=== PATIENT | male | born 1955 | race Caucasian/White ===

== ENCOUNTER → 2019-10-08 10:56 | Outpatient (BNVA) | payer MEDICARE, MEDICAID, SELFPAY | PROVIDERS: PCP Nurse Practitioner Family; Visit Provider Nurse Practitioner | DX: M54.5 Low back pain (principal); M54.2 Cervicalgia; F17.210 Nicotine dependence, cigarettes, uncomplicated; Z79.891 Long term (current) use of opiate analgesic | CPT/HCPCS: 99213; 99214 ==

== ENCOUNTER → 2019-12-05 10:44 | Outpatient (BNVA) | payer MEDICARE, MEDICAID, SELFPAY | PROVIDERS: PCP Nurse Practitioner Family; Visit Provider Anesthesiology | DX: M47.816 Spondylosis without myelopathy or radiculopathy, lumbar region (principal); M50.30 Other cervical disc degeneration, unspecified cervical region; F17.210 Nicotine dependence, cigarettes, uncomplicated; Z79.899 Other long term (current) drug therapy; Z71.6 Tobacco abuse counseling | CPT/HCPCS: 99214 ==

== ENCOUNTER → 2020-02-03 10:06 | Outpatient (BNVA) | payer MEDICARE, MEDICAID, SELFPAY | PROVIDERS: PCP Nurse Practitioner Family; Visit Provider Nurse Practitioner | DX: M54.42 Lumbago with sciatica, left side (principal); M54.9 Dorsalgia, unspecified; M54.2 Cervicalgia; F17.210 Nicotine dependence, cigarettes, uncomplicated; Z79.891 Long term (current) use of opiate analgesic; Z71.6 Tobacco abuse counseling | CPT/HCPCS: 99213; 99214 ==

== ENCOUNTER 2020-03-29 07:55 | Outpatient (CLI) | payer MEDICARE, MEDICAID, SELFPAY ==
--- NOTE | 2020-03-29 08:24 | NMCV_ITS ---
NM renee perf SPECT r/s* [id number] Mo Wiggins Age: 64 Gender: M : 1955 Exam Date: 03/29/2020 08:24 Ordering Phys: Chris Wellington NP Technologist: KEVIN Knox Exam Location: [facility] Indications: CHEST PAIN, HYPERTENSION STRESS TEST Please see separate stress test report in [facility]any for full findings IMAGE PROTOCOL Rest/Stress 1 Lexiscan Day Radiopharmaceutical Dose (mCi) Administration Site Administered by Rest: Tc-99m 10.7 IV KEVIN Malloy Sestamibi Stress:Tc-99m 32.6 IV KEVIN Malloy Sestamibi Rest: 29-Mar-2020 60 Discovery 630 Stress: 29-Mar-2020 30 Discovery 630 0.4mg Lexiscan. Images obtained in supine and prone position. SPECT RESULTS Technical Quality: Excellent Raw Data Analysis: Normal Image Corrections: No attenuation or motion correction applied Summed Stress Score: 0 Summed Rest Score: 0 Summed Difference Score: 0 PERFUSION FINDINGS Very small size perfusion abnormality of mild severity of apical inferior wall on rest and supine stress images with improved tracer uptake on prone stress images. This is likely suggestive of attenuation artifact. FUNCTIONAL RESULTS (calculated via Gated SPECT) Stress Image LV EF (%): 63 Stress EDV (mL):110 TID: 1.08 Stress ESV (mL):41 FUNCTIONAL FINDINGS: The left ventricle is normal in size. Transient Ischemia Dilatation of 1.1. There is normal left ventricular systolic function. The left ventricular ejection fraction is normal with a value of 63%. There is normal left ventricular wall thickening. Normal end-diastolic and end-systolic volumes. IMPRESSIONS 1. Myocardial perfusion imaging is normal. Attenuation artifact noted in apical inferior wall. 2. Overall left ventricular systolic function is normal without regional wall motion abnormalities. 3. The left ventricular ejection fraction is normal with a value of 63%. 4. No coronary ischemia based on the study. Gela Mason MD (Electronically Signed) Final Date: 29 March 2020 16:47 S
--- NOTE | 2020-03-29 08:24 | ECG_ITS ---
[facility] Test Date: 2020-03-29 Pat Name: Mo Wiggins Department: Room: Gender: Male Fleece Tier: : 1955 Requested By: Chris Wellington Order Number: [id number] Oconnor MD: Stanislaw Craven M.D. Interpretive Statements NAME OF STUDY: LEXISCAN SESTAMIBI STRESS TEST INDICATION: Chest Pain NOTE: Please note that this is the electrocardiogram portion of the Lexiscan/Sestamibi stress test. The perfusion scan will be documented separately. DATA: Baseline heart rate was 61 beats per minute. Baseline blood pressure was 149/86 millimeters of mercury. Target heart rate was 157. Maximum heart rate achieved was 87. which was 55 % of the predicted target heart rate. Maximum blood pressure was 157/86 millimeters of mercury. The reason for ending the test was completion of the protocol. The patient did not experience any symptoms. ELECTROCARDIOGRAM: BASELINE: Sinus rhythm. Normal axis. Otherwise, no ST-T changes suggestive of ischemia noted. No arrhythmia noted. EXERCISE: After Lexiscan injection, no ST-T changes suggestive of ischemic noted. No arrhythmia noted. CONCLUSION: Please note due to baseline abnormality of the EKG specificity and sensitivity of the EKG portion of LexiScan MIBI stress test will be low 1. EKG not suggestive of ischemia 2. Lexiscan injection unremarkable. 3. Perfusion scan will be documented separately. Electronically Signed On 03-31-2020 20:15:31 CDT by Stanislaw Craven M.D. [id number]
[2020-03-29 08:26] VITALS: BMI 27.3
--- NOTE | 2020-03-29 09:46 | SUR.PREOP ---
Patient reports no pain or discomfort prior to the start of the procedure.
[2020-03-29] MEDS: regadenoson 0.4 Mg/5 ml Syringe IVP (09:47)
[2020-03-29 10:08] VITALS: BP 114/62; PULSE 74
== END 2020-03-29 07:56 | disposition home or self-care (01) ==
LOC: RAD 08:00 → CDL 08:25
PROVIDERS: PCP Nurse Practitioner Family; Visit Provider Nurse Practitioner Family
DX: R07.9 Chest pain, unspecified (principal); I10 Essential (primary) hypertension
CPT/HCPCS: 78452; 93017; A9500; J2785

== ENCOUNTER → 2020-03-31 09:53 | Outpatient (BNVA) | payer BC, MEDICAID, SELFPAY | PROVIDERS: PCP Nurse Practitioner Family; Visit Provider Anesthesiology | DX: M47.816 Spondylosis without myelopathy or radiculopathy, lumbar region (principal); M50.30 Other cervical disc degeneration, unspecified cervical region; M54.9 Dorsalgia, unspecified; F17.210 Nicotine dependence, cigarettes, uncomplicated; Z79.891 Long term (current) use of opiate analgesic; Z71.6 Tobacco abuse counseling | CPT/HCPCS: 99214 ==

== ENCOUNTER 2020-04-06 11:31 | Outpatient (CLI) | payer MEDICARE, MEDICAID, SELFPAY ==
--- NOTE | 2020-04-06 11:41 | XR_ITS ---
WS: [id number] PROCEDURE: XR chest 2V* [id number] CLINICAL INFORMATION: CHEST PAIN COMPARISON: None. FINDINGS: Heart: Normal cardiac silhouette. Lungs: Lungs are clear. No consolidation or pleural fluid. Bones: Normal visualized bony structures. XR/XR chest 2V* [id number] IMPRESSION: Normal chest
== END 2020-04-06 11:32 | disposition home or self-care (01) ==
LOC: RADWPI 11:38
PROVIDERS: Family Provider Nurse Practitioner Family; PCP Nurse Practitioner Family; Visit Provider Nurse Practitioner Family
DX: R07.9 Chest pain, unspecified (principal)
CPT/HCPCS: 71046

== ENCOUNTER → 2020-06-02 10:03 | Outpatient (BNVA) | payer MEDICARE, MEDICAID, SELFPAY | PROVIDERS: PCP Nurse Practitioner Family; Visit Provider Nurse Practitioner | DX: M54.42 Lumbago with sciatica, left side (principal); M47.816 Spondylosis without myelopathy or radiculopathy, lumbar region; M50.30 Other cervical disc degeneration, unspecified cervical region; M54.9 Dorsalgia, unspecified; F17.210 Nicotine dependence, cigarettes, uncomplicated; Z79.891 Long term (current) use of opiate analgesic; Z71.6 Tobacco abuse counseling | CPT/HCPCS: 99213; 99214 ==

== ENCOUNTER → 2020-07-01 09:22 | Outpatient (BNVA) | payer MEDICARE, MEDICAID, SELFPAY | PROVIDERS: PCP Nurse Practitioner Family; Visit Provider Anesthesiology | DX: M47.816 Spondylosis without myelopathy or radiculopathy, lumbar region (principal); M54.9 Dorsalgia, unspecified; M50.30 Other cervical disc degeneration, unspecified cervical region; F17.210 Nicotine dependence, cigarettes, uncomplicated; Z79.891 Long term (current) use of opiate analgesic; Z79.899 Other long term (current) drug therapy | CPT/HCPCS: 99214 ==

== ENCOUNTER → 2020-08-31 11:24 | Outpatient (BNVA) | payer MEDICARE, MEDICAID, SELFPAY | PROVIDERS: PCP Nurse Practitioner Family; Visit Provider Anesthesiology | DX: M54.42 Lumbago with sciatica, left side (principal); M54.9 Dorsalgia, unspecified; M47.816 Spondylosis without myelopathy or radiculopathy, lumbar region; M50.30 Other cervical disc degeneration, unspecified cervical region; F17.210 Nicotine dependence, cigarettes, uncomplicated; Z79.891 Long term (current) use of opiate analgesic; Z79.899 Other long term (current) drug therapy | CPT/HCPCS: 99213; 99214 ==

== ENCOUNTER → 2020-11-03 09:51 | Outpatient (BNVA) | payer MEDICARE, MEDICAID, SELFPAY | PROVIDERS: PCP Nurse Practitioner Family; Visit Provider Nurse Practitioner | DX: G89.29 Other chronic pain (principal); M47.816 Spondylosis without myelopathy or radiculopathy, lumbar region; M50.30 Other cervical disc degeneration, unspecified cervical region; M54.9 Dorsalgia, unspecified; F17.210 Nicotine dependence, cigarettes, uncomplicated; Z79.891 Long term (current) use of opiate analgesic; Z79.899 Other long term (current) drug therapy; Z71.6 Tobacco abuse counseling | CPT/HCPCS: 99213; 99214 ==

== ENCOUNTER → 2020-12-23 10:29 | Outpatient (BNVA) | payer MEDICARE, MEDICAID, SELFPAY | PROVIDERS: PCP Nurse Practitioner Family; Visit Provider Anesthesiology | DX: G89.29 Other chronic pain (principal); M54.9 Dorsalgia, unspecified; M47.816 Spondylosis without myelopathy or radiculopathy, lumbar region; M50.30 Other cervical disc degeneration, unspecified cervical region; F17.210 Nicotine dependence, cigarettes, uncomplicated; Z79.899 Other long term (current) drug therapy; Z79.891 Long term (current) use of opiate analgesic | CPT/HCPCS: 99214 ==

== ENCOUNTER 2021-01-31 12:41 | Emergency (ER) | payer MEDICARE, MEDICAID, SELFPAY ==
[2021-01-31 12:57] VITALS: BP 151/74; PULSE 76; RESP 16; TEMP 37.1; O2SAT 99; BMI 27.3
--- NOTE | 2021-01-31 13:12 | ECG_ITS ---
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 Measurements Intervals Hassell Rate: 67 P: 56 UT: 146 QRS: 45 QRSD: 97 T: 33 QT: 391 QTc: 414 Interpretive Statements SINUS RHYTHM POSSIBLE LEFT ATRIAL ENLARGEMENT [-0.1mV P WAVE IN V1/V2] No previous ECG available for comparison Electronically Signed On 02-01-2021 0:43:31 CDT by Chris Young M.D. [id number]
--- NOTE | 2021-01-31 13:12 | CT_ITS ---
WS: [id number] CT HEAD TECHNIQUE: Noncontrast CT of the head obtained from the skullbase to the vertex. CLINICAL INFORMATION: headache COMPARISON: MRI 10 ,019 DLP: 921.[address] scans at [facility] use at least one of these dose optimization techniques: automat ed exposure control; mA and/or kV adjustment per patient size (includes targeted exams where dose is matched to clinical indication); or iterative reconstruction. FINDINGS: No evidence of intracranial hemorrhage or mass effect. Ventricular system and basal cisterns are smith nt. Moderate to advanced small vessel changes with moderate parenchymal volume loss. No extra-axial f luid collections. No evidence of mass or mass effect. Chronic lacunar infarcts in the bilateral basal ganglia and left thalamus. Mastoid air cells are well aerated. Mild mucosal thickening in the paranasal sinuses. CT/CT head wo con* [id number] IMPRESSION: 1. No evidence of intracranial hemorrhage or mass effect. 2. Moderate to advanced small vessel changes with moderate parenchymal volume loss. 3. No acute intracranial findings.
--- NOTE | 2021-01-31 13:38 | ED_ITS ---
HPI - Headache General: Chief Complaint: Headache Stated Complaint: headaches, nausea Time Seen by Provider: 01/31/21 13:02 History of Present Illness: HPI Narrative: 65-year-old male comes in complaining of a left-sided frontal and temporal headache that started 1 week ago. Blood pressure has been up is little bit as well. He has had a lot of nausea with no vomiting. He is chronically on hydrocodone. He did not change the dose recently. He has not been taking any [id number]-[id number] medications he is not noticed any difficulty with vision or hearing swallowing taste or smell. He denies any chest pain or shortness of breath. MD elicited complaint: headache Pertinent past history: hypertension Onset (ago): week(s) (1) Onset description: suddenly Location: left, frontal and temporal Severity: moderate Quality & Timing: throbbing and steady Exacerbating factors: light and noise Relieving factors: rest and dark room Associated symptoms: Reports lightheadedness, nausea, photophobia and sound sensitivity; Deny chest pain, confusion, cough, diaphoresis, eye pain, eye redness, fever(s), loss of vision, malaise, neck stiffness, numbness, paresthesias, pre-syncope, rash, seizures, short of breath, syncope, vomiting or weakness Treatments prior to arrival: none Review of Systems Const: Denies: fever(s), malaise or diaphoresis ENMT: Denies: throat pain, ear or mastoid pain, nasal discharge or nasal congestion Card: Reports: lightheadedness; Denies: chest pain, syncope or pre-syncope Resp: Denies: dyspnea, productive cough or non-productive cough GI: Reports: nausea; Denies: vomiting : Denies: flank pain, dysuria, urinary frequency or urinary urgency Skin/Breast: Denies: rash Neuro: Denies: confusion PFSH ED PFSH: Medical History Back pain with radiation Degenerative disc disease, cervical Encounter for long-term opiate analgesic use Facet arthritis of lumbar region Long-term use of high-risk medication Opioid contract exists Smoker Surgical History History of colonoscopy with polypectomy 2016 S/P appendectomy S/P cataract extraction RIGHT EYE DR SARMIENTO Status post lens implant LEFT EYE Family History Other Heart disease Denies family history of Anesthesia complication Bleeding disorder Social History Smoking and tobacco status: current some day smoker cigarettes [ Other cigarette details: 1 EVERY 4 DAYS ] Alcohol intake: former Former alcohol use details: Quit 10 years ago History of recent travel: No Physical Exam Const: COMMON NORMALS: no acute distress GENERAL APPEARANCE: cooperative and comfortable ORIENTATION/CONSCIOUSNESS: Yes awake, Yes oriented to person, Yes oriented to place and Yes oriented to time HENMT: COMMON NORMALS: normocephalic, atraumatic, hearing grossly normal bilaterally, external ears normal, EAC's normal, TM's normal bilaterally, Normal nasal mucous membranes and turbinates present, moist oral mucous membranes and oropharynx normal HEAD & SCALP: normocephalic and atraumatic NOSE: Normal nasal mucous membranes and turbinates present EXTERNAL EAR: Yes external ears normal EXTERNAL AUDITORY CANAL: EAC's normal TYMPANIC MEMBRANE: TM's normal bilaterally Eye: COMMON NORMALS: Equal, round and reactive pupils present, EOMs intact bilaterally, conjunctivae normal and no scleral icterus CONJUNCTIVA: Yes conjunctivae normal PUPIL: Yes Equal, round and reactive pupils present DIRECT OPHTHALMOSCOPY: Yes photophobia Neck/C-Spine: COMMON NORMALS: full ROM, no lymphadenopathy, supple and no JVD Lymph: LYMPHATIC: no lymphadenopathy noted and no lymphedema noted Resp: COMMON NORMALS: normal respiratory effort, No retractions, No use of accessory muscles and clear to auscultation bilaterally AUSCULTATION: clear to auscultation bilaterally Cardio: COMMON NORMALS: no JVD, regular rate, regular rhythm and No murmurs present (Cardio) RATE: regular rate RHYTHM: regular rhythm GI: COMMON NORMALS: Soft to palpation and No hepatosplenomegaly present AUSCULTATION: Yes normoactive bowel sounds PALPATION: Yes Soft to palpation, No Tenderness to palpation present (GI), No Guarding due to palpation present (GI) and Yes No hepatosplenomegaly present Extremity: COMMON NORMALS: normal to inspection, capillary refill normal, no clubbing, cyanosis or edema, no calf tenderness and no pedal edema Neuro: SENSORIUM/ORIENTATION: Yes oriented to person, Yes oriented to place and Yes oriented to time Skin: COMMON NORMALS: no rashes or lesions noted GENERAL SKIN EXAM: no rashes or lesions noted Course Vital Signs: Vital signs: Vital Signs Temperature 98.7 F 01/31/21 12:57 Pulse Rate 65 01/31/21 15:31 Respiratory Rate 18 01/31/21 15:31 Blood Pressure 122/66 01/31/21 15:31 Pulse Oximetry 96 01/31/21 15:31 MDM - Headache MDM Narrative: Medical decision making narrative: Headache improved with interventions. His sodium is a little bit low. We will go ahead and discharge him home given Phenergan to use as needed for his headaches encouraged him to check with his primary care doctor later this week to recheck sodium additionally we will increase his metoprolol to 50 daily he will need to have his blood pressure rechecked on follow-up as well return if has problems. Lab Data: Labs: Lab Results 01/31/21 01/31/21 Range/Units 13:35 13:35 WBC 11.7 H (4.0-10.0) 10^3/ uL RBC 4.80 (4.1-5.3) 10^6/u L Hgb 14.8 (11.7-16.6) g/dL Hct 43.2 (42.0-52.0) % MCV 90.0 (80-94) fL MCH 30.8 (28.0-34.0) pg MCHC 34.3 (30.0-36.0) g/dL RDW 12.4 (12.1-15.1) % Plt Count 356 (130-400) 10^3/c mm MPV 8.8 (7.4-10.4) fL Neut % (Auto) 70.8 % Lymph % (Auto) 19.6 % [place] % (Auto) 7.5 % Eos % (Auto) 0.9 % Baso % (Auto) 0.6 % Neut # (Auto) 8.28 H (1.8-7.7) 10^3/u L Lymph # (Auto) 2.3 (0.8-4.8) 10^3/u L [place] # (Auto) 0.9 (0.2-0.9) 10^3/u L Eos # (Auto) 0.1 (0.0-0.8) 10^3/u L Baso # (Auto) 0.1 (0.0-0.1) 10^3/u L Nucleated RBC % (a uto) 0 % Nucleated RBCs # 0.0 /100WBC Sodium 126 L (136-145) mmol/L Potassium 4.0 (3.5-5.1) mmol/L Chloride 91 L (98-107) mmol/L Carbon Dioxide 26 (22-29) mmol/L Anion Gap 13.0 (5-19) BUN 13 (8-23) mg/dL Creatinine 0.9 (0.7-1.2) mg/dL GFR Calculation 85.0 L (90-130) mL/min Glucose 95 (65-115) mg/dL Calculated Osmolal ity 262 L (285-295) mOsm/k g Calcium 8.9 (8.5-10.5) mg/dL Total Bilirubin 0.5 (0.15-1.2) mg/dL AST 13 (0-40) U/L ALT 14 (0-41) U/L Alkaline Phosphata se 73 (40-130) IU/L Total Protein 7.5 (6.6-8.7) g/dL Albumin 4.6 (3.5-5.2) g/dL Globulin 2.9 (1.3-4.6) g/dL Discharge Plan Discharge Patient Disposition: Home Clinical Impression: Headache, Benign essential HTN Condition: Stable Prescriptions: New promethazine 25 mg tablet 25 mg PO Q6H PRN (Reason: prn headache) Qty: 20 RF: 0 Changed metoprolol succinate 25 mg tablet extended release 24 hr 50 mg PO DAILY@629 Qty: 0 RF: 0 No Action meloxicam [Mobic] 15 mg tablet 15 mg PO DAILY@1829 RF: 0 amlodipine 5 mg tablet 10 mg PO DAILY@1829 RF: 0 bupropion HCl 150 mg tablet extended release 24 hr 150 mg PO DAILY@30 RF: 0 hydrocodone-acetaminophen 10-325 mg tablet 1 tab PO QID 30 Days Qty: 120 RF: 0 baclofen 10 mg tablet 10 mg PO TID PRN (Reason: muscle spacticity) 30 Days Qty: 90 RF: 1 pravastatin 40 mg tablet 1 mg PO DAILY@1829 RF: 0 benazepril-hydrochlorothiazide 20-12.5 mg tablet 1 tab PO DAILY@0630 RF: 0 pantoprazole 40 mg tablet,delayed release (DR/EC) 40 mg PO DAILY@1830 RF: 0 gabapentin 300 mg capsule 600 mg PO BEDTIME@2100 RF: 0 Discharge Orders: Discharge ED (Routine); Ordered 01/31/21 Ordered By: Albert Bryant Referrals: Chris Wellington NP [Primary Care Provider] - Discharge Diet: Usual diet Discharge Activity: Resume usual activity Patient Instructions: Opioid Safety Activity Restrictions/Additional Instructions: Increase metoprolol to 50 mg daily. Follow-up with your primary care doctor within the week to reevaluate blood pressure and headache. Coding Level of Care Code ED Doctor Chiropractic for Chg Fwd Exam Problem Focused
[2021-01-31 13:42] LABS: Basophils # 0.1 10^3/uL (0.0-0.1); Basophils % 0.6 %; Eosinophils # 0.1 10^3/uL (0.0-0.8); Eosinophils % 0.9 %; Hematocrit 43.2 % (42.0-52.0); Hemoglobin 14.8 g/dL (11.7-16.6); Lymphocytes # 2.3 10^3/uL (0.8-4.8); Lymphocytes % 19.6 %; Mean Corpuscular HGB Conc 34.3 g/dL (30.0-36.0); Mean Corpuscular Hemoglobin 30.8 pg (28.0-34.0); Mean Platelet Volume 8.8 fL (7.4-10.4); Monocytes # 0.9 10^3/uL (0.2-0.9); Monocytes % 7.5 %; Neutrophils # 8.28 10^3/uL (1.8-7.7); Neutrophils % 70.8 %; Nucleated Red Blood Cells % 0 %; Platelet Count 356 10^3/cmm (130-400); Red Cell Distribution Width 12.4 % (12.1-15.1); White Blood Count 11.7 10^3/uL (4.0-10.0)
[2021-01-31] MEDS: ketorolac 30 mg/mL INJ 15 MG IVP (13:55)
[2021-01-31] MEDS: promethazine 25 mg/mL SDV 1 mL IM (13:55)
[2021-01-31 14:16] LABS: Alanine Aminotransferase 14 U/L (0-41); Albumin Level 4.6 g/dL (3.5-5.2); Alkaline Phosphatase 73 IU/L (40-130); Aspartate Amino Transferase 13 U/L (0-40); Blood Urea Nitrogen 13 mg/dL (8-23); Calcium 8.9 mg/dL (8.5-10.5); Carbon Dioxide 26 mmol/L (22-29); Chloride 91 mmol/L (98-107); Globulin 2.9 g/dL (1.3-4.6); Glucose 95 mg/dL (65-115); Osmolality Calculated 262 mOsm/kg (285-295); Sodium 126 mmol/L (136-145); Total Bilirubin 0.5 mg/dL (0.15-1.2); Total Protein 7.5 g/dL (6.6-8.7)
[2021-01-31 15:31] VITALS: BP 122/66; PULSE 65; RESP 18; O2SAT 96
== END 2021-01-31 15:32 | disposition home or self-care (01) ==
PROVIDERS: Emergency Provider Family Medicine; PCP Nurse Practitioner Family
DX: R51.9 Headache, unspecified (principal); I10 Essential (primary) hypertension; F17.210 Nicotine dependence, cigarettes, uncomplicated
CPT/HCPCS: 70450; 80053; 85025; 93005; 96372; 96374; 99283; J1885; J2550

== ENCOUNTER → 2021-02-25 10:19 | Outpatient (BNVA) | payer MEDICARE, MEDICAID, SELFPAY | PROVIDERS: PCP Nurse Practitioner Family; Visit Provider Anesthesiology | DX: G89.29 Other chronic pain (principal); M54.9 Dorsalgia, unspecified; M47.816 Spondylosis without myelopathy or radiculopathy, lumbar region; M54.2 Cervicalgia; F17.210 Nicotine dependence, cigarettes, uncomplicated; Z79.899 Other long term (current) drug therapy; Z79.891 Long term (current) use of opiate analgesic | CPT/HCPCS: 99213; 99214 ==

== ENCOUNTER → 2021-04-29 10:29 | Outpatient (BNVA) | payer MEDICARE, MEDICAID, SELFPAY | PROVIDERS: PCP Nurse Practitioner Family; Visit Provider Anesthesiology | DX: G89.29 Other chronic pain (principal); M47.816 Spondylosis without myelopathy or radiculopathy, lumbar region; M54.2 Cervicalgia; M40.50 Lordosis, unspecified, site unspecified; F17.210 Nicotine dependence, cigarettes, uncomplicated; Z79.891 Long term (current) use of opiate analgesic | CPT/HCPCS: 99213; 99214 ==

== ENCOUNTER → 2021-06-23 08:15 | Outpatient (BNVA) | payer MEDICARE, MEDICAID, SELFPAY | PROVIDERS: PCP Nurse Practitioner Family; Visit Provider Anesthesiology | DX: M47.816 Spondylosis without myelopathy or radiculopathy, lumbar region (principal); M50.30 Other cervical disc degeneration, unspecified cervical region; F17.210 Nicotine dependence, cigarettes, uncomplicated; Z79.899 Other long term (current) drug therapy; Z79.891 Long term (current) use of opiate analgesic | CPT/HCPCS: 99214 ==

== ENCOUNTER → 2021-09-20 08:19 | Outpatient (BNVA) | payer MEDICARE, MEDICAID, SELFPAY | PROVIDERS: PCP Nurse Practitioner Family; Visit Provider Anesthesiology | DX: G89.29 Other chronic pain (principal); M47.816 Spondylosis without myelopathy or radiculopathy, lumbar region; M50.30 Other cervical disc degeneration, unspecified cervical region; F17.200 Nicotine dependence, unspecified, uncomplicated; Z79.891 Long term (current) use of opiate analgesic; Z79.899 Other long term (current) drug therapy | CPT/HCPCS: 99214 ==

== ENCOUNTER → 2022-01-18 14:33 | Outpatient (BNVA) | payer MEDICARE, MEDICAID, SELFPAY | PROVIDERS: PCP Nurse Practitioner Family; Referring Provider Nurse Practitioner Family; Visit Provider Surgery | DX: Z86.010 Personal history of colon polyps (principal) | CPT/HCPCS: 99213 ==

== ENCOUNTER 2022-03-23 05:42 | Day surgery (SDC) | payer MEDICARE, MEDICAID, SELFPAY ==
[2022-03-22 10:35] VITALS: BMI 27.3
[2022-03-23 06:10] VITALS: BP 146/93; PULSE 87; RESP 18; TEMP 36.7; O2SAT 98
[2022-03-23] MEDS: sodium chloride 0.9% 1,000 ML 30 ML IV (06:12)
--- NOTE | 2022-03-23 06:44 | W.PM.OPSFHP ---
Same Day Surgery H&P Indication for Procedure/HPI DATE OF PROCEDURE: March 23, 2022 CHIEF COMPLAINT/INDICATIONFOR SURGICAL PROCEDURE: Colon polyp PREOP DIAGNOSIS: History of colon polyps PLANNED PROCEDURE: Operation Date: 03/23/22 07:30 Proposed Procedures p Colonoscopy 12792/z86.010(Not Applicable) - Petros Johnson MD 01/18/2022 This is a pleasant 66 years old gentleman was seen and evaluated back in 12/22/2020 for surveillance colonoscopy because of history of colon polyps.? Yet its not clear why the patient did not have it done.? Patient comes today for follow-up to schedule his surveillance colonoscopy.? He denies bleeding per rectum or history of colon cancer. 03/23/2022 Patient comes today for surveillance colonoscopy ROS All systems have been reviewed negative except as for the above or per problem list. Medications/Allergies* Home Medications Medication Instructions Recorded Confirmed Type amlodipine 5 mg tablet 10 mg PO DAILY@182910/07/19 03/23/22 History meloxicam 15 mg tablet (Mobic) 15 mg PO DAILY@182910/07/19 03/23/22 History benazepril 20 1 tab PO DAILY@62901/31/21 03/23/22 History mg-hydrochlorothiazide 12.5 mg tablet pantoprazole 40 mg tablet,delayed 40 mg PO DAILY@182901/31/21 03/23/22 History release pravastatin 40 mg tablet 1 mg PO DAILY@182901/31/21 03/23/22 History Allergies/Adverse Reactions Allergy/AdvReac Type Severity Reaction Status Date / Time No Known Allergies Allergy Verified 03/23/22 06:45 Current Medications: Generic Name Dose Route Start Last Admin Trade Name Freq PRN Reason Stop Dose Admin Sodium Chloride 1,000 mls @ 30 mls/hr 03/23/22 06:00 03/23/22 06:12 Sodium Chloride 0.9% IV 03/24/22 05:59 30 mls/hr .Q24H CARL Administration Pertinent History/Comorbid Conditions* Medical History Back pain with radiation Degenerative disc disease, cervical Encounter for long-term opiate analgesic use Facet arthritis of lumbar region Long-term use of high-risk medication Opioid contract exists Smoker Surgical History (Updated 12/23/20 @ 18:10 by Petros Johnson MD) History of colonoscopy with polypectomy 2016 S/P appendectomy S/P cataract extraction RIGHT EYE DR SARMIENTO Status post lens implant LEFT EYE Family History (Updated 10/07/19 @ 17:01 by HANNAH Mae) Heart disease Denies family history of Anesthesia complication Bleeding disorder Social History Smoking and tobacco status: current every day smoker cigarettes [ Other cigarette details: 1 EVERY 4 DAYS] Alcohol intake: former Former alcohol use details: Quit 10 years ago History of recent travel: No Pertinent Exam Findings alert, oriented x 3, regular rate & rhythm and procedure specific exam findings (Abdominal exam nontender nondistended soft) Recommendations Surgery/Procedure today (Surveillance colonoscopy) Coding Level of Care Code Acute [place] Neck Whipper for Markus Tobar
--- NOTE | 2022-03-23 06:54 | ANES.PREANE2 ---
Pre-Anesthetic Assessment Height/Weight: Height 1.73 m Weight 81.647 kg Temp Pulse Resp BP Pulse Ox 98.0 F 87 18 146/93 98 03/23/22 06:10 03/23/22 06:10 03/23/22 06:10 03/23/22 06:10 03/23/22 06:10 Preop Diagnosis: History of colon polyps Operation Date: 03/23/22 07:30 Proposed Procedures p Colonoscopy 03270/z86.010(Not Applicable) - Petros Johnson MD Familial anesthetic complications: none Was Beta Claire taken within 24 hours: Yes Was Clonidine taken within 24 hours: N/A Last intake: Intake Last Liquid Date 03/22/22 Last Liquid Time 21:30 Last Solid Date 03/22/22 Last Solid Time 10:30 Social Tobacco and No alcohol 0.5 pack(s) per day Exam alert, oriented x 3, clear to auscultation bilaterally and regular rate & rhythm Airway Submandibular: within normal limits Cervical ROM: within normal limits Mallampati: Class II Dentition: full Pulmonary None reported CV/HEM Hypertension None reported Hepatic None reported GI Gastroesophageal Reflux Disease (controlled) Metabolic Hyperlipidemia [facility] None reported Neuropsych None reported Anesthetic Plan ASA status: 2 Anesthesia: MAC Risk of > 500 ml blood loss (7ml/kg in children): No Medications/Allergies Home Medications Medication Instructions Recorded Confirmed Last Taken Type amlodipine 5 mg tablet 10 mg PO DAILY@182910/07/19 03/23/22 03/22/22 History meloxicam 15 mg tablet (Mobic) 15 mg PO DAILY@182910/07/19 03/23/22 03/22/22 History benazepril 20 1 tab PO DAILY@62901/31/21 03/23/22 03/22/22 History mg-hydrochlorothiazide 12.5 mg tablet metoprolol succinate 25 mg 50 mg PO DAILY@629 #0 tab 01/31/21 03/23/22 03/21/22 Rx tablet,extended release 24 hr pantoprazole 40 mg tablet,delayed 40 mg PO DAILY@182901/31/21 03/23/22 03/21/22 History release pravastatin 40 mg tablet 1 mg PO DAILY@182901/31/21 03/23/22 03/21/22 History promethazine 25 mg tablet 25 mg PO Q6H PRN #20 tab 01/31/21 03/23/22 03/21/22 Rx baclofen 10 mg tablet 10 mg PO TID PRN 30 Days #90 tab 09/20/21 03/23/22 03/22/22 Rx gabapentin 300 mg capsule 600 mg PO BEDTIME@2100 30 Days #60 09/20/21 03/23/22 03/22/22 Rx cap hydrocodone 10 mg-acetaminophen 1 tab PO QID 30 Days #120 tab 09/20/21 03/23/22 03/22/22 Rx 325 mg tablet Allergies Allergy/AdvReac Type Severity Reaction Status Date / Time No Known Allergies Allergy Verified 03/23/22 06:45 Current Medications Generic Name Dose Route Start Last Admin Trade Name Justiceq PRN Reason Stop Dose Admin Sodium Chloride 1,000 mls @ 30 mls/hr 03/23/22 06:00 03/23/22 06:12 Sodium Chloride 0.9% IV 03/24/22 05:59 30 mls/hr .Q24H CARL Administration PFSH Anesthesia Medical History Back pain with radiation Degenerative disc disease, cervical Encounter for long-term opiate analgesic use Facet arthritis of lumbar region Long-term use of high-risk medication Opioid contract exists Smoker Surgical History History of colonoscopy with polypectomy 2016 S/P appendectomy S/P cataract extraction RIGHT EYE DR SARMIENTO Status post lens implant LEFT EYE Family History Other Heart disease Denies family history of Anesthesia complication Bleeding disorder Social History Smoking and tobacco status: current every day smoker cigarettes [ Other cigarette details: 1 EVERY 4 DAYS] Alcohol intake: former Former alcohol use details: Quit 10 years ago History of recent travel: No Data Anesthesia Cardiac Studies: Sestamibi Stress Test (Cardiology) 03/29/20
[2022-03-23 07:58] VITALS: BP 113/69; PULSE 65; RESP 12; TEMP 36.3; O2SAT 94
--- NOTE | 2022-03-23 08:06 | ANE.PACU2 ---
Inpatient post-anesthesia follow up: Airway intact: Yes Vital signs: Temperature 98.0 F Pulse Rate 87 Respiratory Rate 18 Blood Pressure 146/93 Pulse Oximetry 98 Oxygen Delivery Me thod Room Air Oxygen Flow Rate Fraction of Inspir ed Oxygen Hydration adequate: Yes Nausea and vomiting: No Pain level: 1 Mental status: Baseline
[2022-03-23 08:22] VITALS: BP 147/81; PULSE 62; RESP 18; TEMP 36.1; O2SAT 95
[2022-03-23 08:23] LABS: Basophils # 0.1 10^3/uL (0.0-0.1); Basophils % 0.4 %; Eosinophils # 0.1 10^3/uL (0.0-0.8); Eosinophils % 0.6 %; Hematocrit 42.8 % (42.0-52.0); Hemoglobin 14.8 g/dL (11.7-16.6); Lymphocytes # 1.3 10^3/uL (0.8-4.8); Lymphocytes % 11.9 %; Mean Corpuscular HGB Conc 34.6 g/dL (30.0-36.0); Mean Corpuscular Hemoglobin 31.2 pg (28.0-34.0); Mean Corpuscular Volume 90.3 fl (80-94); Mean Platelet Volume 9.1 fL (7.4-10.4); Monocytes # 0.6 10^3/uL (0.2-0.9); Neutrophils # 9.09 10^3/uL (1.8-7.7); Neutrophils % 81.7 %; Nucleated Red Blood Cells % 0 %; Platelet Count 355 10^3/cmm (130-400); Red Blood Count 4.74 10^6/uL (4.1-5.3); Red Cell Distribution Width 12.7 % (12.1-15.1); White Blood Count 11.1 10^3/uL (4.0-10.0)
[2022-03-23 08:50] LABS: Carcinoembryonic Antigen 1.8 ng/mL (0.0-4.7)
[2022-03-23 09:01] LABS: Alanine Aminotransferase 15 U/L (0-41); Albumin Level 4.2 g/dL (3.5-5.2); Alkaline Phosphatase 62 IU/L (40-130); Anion Gap 15.7 (5-19); Aspartate Amino Transferase 16 U/L (0-40); Blood Urea Nitrogen 12 mg/dL (8-23); Calcium 8.8 mg/dL (8.5-10.5); Carbon Dioxide 24 mmol/L (22-29); Chloride 101 mmol/L (98-107); Globulin 2.9 g/dL (1.3-4.6); Glomerular Filtration Rate 67.2 mL/min (90-130); Glucose 102 mg/dL (65-115); Osmolality Calculated 284 mOsm/kg (285-295); Potassium 3.7 mmol/L (3.5-5.1); Sodium 137 mmol/L (136-145); Total Bilirubin 0.5 mg/dL (0.15-1.2); Total Protein 7.1 g/dL (6.6-8.7)
== END 2022-03-23 08:40 | disposition home or self-care (01) ==
PROVIDERS: PCP Nurse Practitioner Family; Visit Provider Surgery
PROC: 0DJD8ZZ Inspection of Lower Intestinal Tract, Via Natural or Artificial Opening Endoscopic (ICD-10-PCS; CPT 45378; principal; 2022-03-23 07:30)
DX: Z12.11 Encounter for screening for malignant neoplasm of colon (principal); K57.30 Diverticulosis of large intestine without perforation or abscess without bleeding; Z86.010 Personal history of colon polyps; Z79.899 Other long term (current) drug therapy; Z79.891 Long term (current) use of opiate analgesic; F17.210 Nicotine dependence, cigarettes, uncomplicated; I10 Essential (primary) hypertension; K21.9 Gastro-esophageal reflux disease without esophagitis; E78.5 Hyperlipidemia, unspecified
CPT/HCPCS: 45380; 45381; 80053; 82378; 85025; 88305; J2704; J7030

== ENCOUNTER → 2022-03-30 14:29 | Outpatient (BNVA) | payer MEDICARE, MEDICAID, SELFPAY | PROVIDERS: PCP Nurse Practitioner Family; Visit Provider Surgery | DX: Z09 Encounter for follow-up examination after completed treatment for conditions other than malignant neoplasm (principal); K57.31 Diverticulosis of large intestine without perforation or abscess with bleeding; Z86.010 Personal history of colon polyps | CPT/HCPCS: 99213 ==

== ENCOUNTER → 2022-07-20 09:35 | Outpatient (BNVA) | payer MEDICARE, MEDICAID, SELFPAY | PROVIDERS: PCP Nurse Practitioner Family; Visit Provider Nurse Practitioner Family | DX: I10 Essential (primary) hypertension (principal); Z79.899 Other long term (current) drug therapy | CPT/HCPCS: 80053; 80061; 81000; 85025 ==

== ENCOUNTER → 2022-09-05 09:31 | Outpatient (BNVA) | payer MEDICARE, MEDICAID, SELFPAY | PROVIDERS: PCP Nurse Practitioner Family; Visit Provider Internal Medicine Cardiovascular Disease | DX: R07.89 Other chest pain (principal); I10 Essential (primary) hypertension; F17.210 Nicotine dependence, cigarettes, uncomplicated | CPT/HCPCS: 99204 ==

== ENCOUNTER 2022-10-24 06:27 | Outpatient (CLI) | payer MEDICARE, MEDICAID, SELFPAY ==
[2022-10-24 06:53] VITALS: BMI 25.1
--- NOTE | 2022-10-24 06:53 | ECG_ITS ---
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 Interpretive Statements NAME OF STUDY: LEXISCAN SESTAMIBI STRESS TEST INDICATION: Chest Pain, PROCEDURE: At the baseline, the EKG revealed normal sinus rhythm with a normal ST Ts.. The baseline heart was 80 bpm with a blood pressue of 176/79 mm of Hg Lexiscan was infused over a period of 20 seconds. A total of 0.4 milligrams of Lexiscan was infused. The stress phase was continued for a total of 5 minutes. Heart rate at the end of the stress phase was 96 bpm with a blood pressure 161/70 mm of Hg. The EKG at the peak infusion revealed no significant changes. Sestamibi was injected 20 seconds after the Lexiscan infusion. Heart rate at the end of the recovery phase was 91 bpm with a blood pressure of 166/73 mm of Hg. CONCLUSION: 1. No significant EKG changes with the LexiScan infusion 2. No LexiScan induced chest pain or cardiac arrhythmia 3. Normal blood pressure and heart rate response 4. Sestamibi/sestamibi perfusion scan pending; see separate report. Electronically Signed On 10-28-2022 13:41:22 STEAM DISTRIBUTION SUPERVISOR by Chris Young M.D. [email or web address]
--- NOTE | 2022-10-24 06:53 | NMCV_ITS ---
NM renee perf SPECT r/s* [id number] Mo Wiggins Age: 67 Gender: M : 1955 Exam Date: 10/24/2022 06:53 Ordering Phys: Gela Mason MD ([email or web address]) Technologist: KEVIN Knox Exam Location: [facility] Indications: CHEST PAIN STRESS TEST Please see separate stress test report in [facility] for full findings IMAGE PROTOCOL Rest/Stress 1 Lexiscan Day Radiopharmaceutical Dose (mCi) Administration Site Administered by Rest: Tc-99m 10.8 IV KEVIN Malloy Sestamibi Stress:Tc-99m 32.6 IV KEVIN Malloy Sestamibi Rest: 24-Oct-2022 60 Discovery 630 Stress: 24-Oct-2022 30 Discovery 630 0.4mg Lexiscan. Images obtained in supine and prone position. SPECT RESULTS Technical Quality: Excellent Raw Data Analysis: Normal Image Corrections: No attenuation or motion correction applied Summed Stress Score: 0 Summed Rest Score: 0 Summed Difference Score: 0 PERFUSION FINDINGS SPECT images demonstrate homogeneous tracer distribution throughout the myocardium. FUNCTIONAL RESULTS (calculated via Gated SPECT) Stress Image LV EF (%): 85 Stress EDV (mL):86 TID: 0.96 Stress ESV (mL):13 FUNCTIONAL FINDINGS: The left ventricle is normal in size. Transient Ischemia Dilatation of 0.96. The left ventricular ejection fraction is normal with a value of 85%. There is hyperdynamic left ventricular wall thickening. IMPRESSIONS 1. Myocardial perfusion imaging is normal. 2. Overall left ventricular systolic function is hyperdynamic without regional wall motion abnormalities, LVEF=85%. 3. EKG portion of the study will be reported separately. 4. Scan indicates low risk for cardiac events. Gela Mason MD (Electronically Signed) Final Date: 31 October 2022 19:57 S
[2022-10-24 08:52] VITALS: BP 146/72; PULSE 91
== END 2022-10-24 06:28 | disposition home or self-care (01) ==
PROVIDERS: PCP Nurse Practitioner Family; Visit Provider Internal Medicine Cardiovascular Disease
DX: R07.9 Chest pain, unspecified (principal)
CPT/HCPCS: 36415; 78452; 93017; 96374; A9500

== ENCOUNTER 2022-11-21 07:49 | Emergency (ER) | payer MEDICARE, MEDICAID, SELFPAY ==
--- NOTE | 2022-11-21 07:51 | XRR_ITS ---
PROCEDURE INFORMATION: Exam: XR Chest Exam date and time: 11/21/2022 8:06 AM Age: 67 years old Clinical indication: Pain; Left-sided; Additional info: Chest pain TECHNIQUE: Imaging protocol: Radiologic exam of the chest. Views: 1 view. COMPARISON: CR XR chest 2V* [id number] 04/06/2020 12:02 PM FINDINGS: Lungs: Unremarkable. No consolidation. Pleural spaces: Unremarkable. No pleural effusion. No pneumothorax. Heart/Mediastinum: Unremarkable. No cardiomegaly. Bones/joints: Unremarkable for age. XR/XR chest 1V portable [id number] IMPRESSION: Negative chest
--- NOTE | 2022-11-21 07:52 | ECG_ITS ---
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 Measurements Intervals Adkins Rate: 68 P: 65 OK: 149 QRS: 48 QRSD: 102 T: 47 QT: 379 QTc: 405 Interpretive Statements SINUS RHYTHM Compared to ECG 01/31/2021 13:45:24 No significant changes Electronically Signed On 11-21-2022 18:16:35 [facility] by Cirilo Fields M.D. [id number]
[2022-11-21 07:58] VITALS: BP 208/109; PULSE 73; RESP 16; TEMP 36.6; O2SAT 94
--- NOTE | 2022-11-21 08:01 | ED_ITS ---
HPI - Chest Pain General: Chief Complaint: Chest Pain Stated Complaint: headache, chest pain Time Seen by Provider: 11/21/22 07:50 Source: patient Mode of arrival: ambulatory History of Present Illness: 67-year-old male presents emergency room with complaints of chest pain. He is intermittently had chest pain for the last 4 months. He seen primary care for a couple of times she has had a cardiac stress test which was negative as a Lexiscan sestamibi stress test. He does have elevated blood pressure he is on carvedilol, amlodipine and Benzepril hydrochlorothiazide. He is also been taking Protonix for reflux. He has not noticed anything that exacerbates or relieves the chest pain. He has not missed any of his medications recently. He is on tramadol that he takes as needed. He has not noticed any association of the chest pain with exertion or palpation his chest has not had any radiation of pain shortness of breath diaphoresis or nausea. MD complaint: chest pain Onset (ago): month(s) Timing of current episode: episodic Prior episodes: Yes Onset: during rest Pain location: left chest Pain radiation: none Severity: mild Quality: tightness and heaviness Relieving factors: nothing Exacerbating factors: nothing Associated symptoms: Deny abdominal pain, diaphoresis, dyspnea, fever(s), leg edema, nausea, palpitations, sense of impending doom, syncope or vomiting Treatment prior to arrival: none Review of Systems Const: Denies: fever(s), chills, fatigue, malaise or diaphoresis ENMT: Denies: throat pain, ear or mastoid pain, nasal discharge or nasal congestion Card: Reports: chest pain; Denies: palpitations, irregular heart rhythm, edema, swelling of feet/ankles or syncope Resp: Denies: dyspnea, productive cough, non-productive cough or wheezing GI: Denies: abdominal pain, nausea or vomiting : Denies: flank pain, dysuria, urinary frequency or urinary urgency Skin/Breast: Denies: rash or pruritus PFSH ED PFSH: Medical History Back pain with radiation Degenerative disc disease, cervical Encounter for long-term opiate analgesic use Facet arthritis of lumbar region GERD (gastroesophageal reflux disease) Long-term use of high-risk medication Opioid contract exists Smoker Surgical History History of colonoscopy with polypectomy 2016 S/P appendectomy S/P cataract extraction RIGHT EYE DR SARMIENTO Status post lens implant LEFT EYE Family History Mother Myocardial infarction Hypertension Sister Myocardial infarction Hypertension Family/Other Stroke Father Hypertension Brother Hypertension Diabetes Other Heart disease Social History Smoking and tobacco status: current every day smoker cigarettes Packs smoked per day: 0.5 Years cigarettes smoked: 40 [ Other cigarette details: slowed down] Alcohol intake: former Former alcohol use details: Quit 10 years ago Adopted: No Caregiver/support person: No Lives independently: Yes service: No Current occupational status: disabled Sexually active: Yes Current gender identity: Male Physical Exam Const: GENERAL APPEARANCE: cooperative and comfortable ORIENTATION/CONSCI OUSNESS: Yes awake, Yes oriented to person, Yes oriented to place and Yes oriented to time HENMT: COMMON NORMALS: normocephalic, atraumatic and hearing grossly normal bilaterally HEAD & SCALP: normocephalic and atraumatic Resp: COMMON NORMALS: normal respiratory effort, No retractions, No use of accessory muscles and clear to auscultation bilaterally AUSCULTATION: clear to auscultation bilaterally Cardio: COMMON NORMALS: regular rate, regular rhythm and No murmurs present (Cardio) RATE: regular rate RHYTHM: regular rhythm GI: COMMON NORMALS: Soft to palpation and No hepatosplenomegaly present AUSCULTATION: Yes normoactive bowel sounds PALPATION: Yes Soft to palpation, No Tenderness to palpation present (GI), No Guarding due to palpation present (GI) and Yes No hepatosplenomegaly present Extremity: COMMON NORMALS: normal to inspection, capillary refill normal, no clubbing, cyanosis or edema, no calf tenderness and no pedal edema Neuro: SENSORIUM/ORIENTATION: Yes oriented to person, Yes oriented to place and Yes oriented to time Skin: COMMON NORMALS: no rashes or lesions noted GENERAL SKIN EXAM: no rashes or lesions noted Course Vital Signs: Vital signs: Vital Signs Temperature 97.8 F 11/21/22 07:58 Pulse Rate 73 11/21/22 07:58 Respiratory Rate 16 11/21/22 07:58 Blood Pressure 208/109 11/21/22 07:58 Pulse Oximetry 94 11/21/22 07:58 MDM - Chest Pain Medical Decision Making Patient Lexiscan sestamibi stress test 1 month ago that was normal. His troponin and EKG today are unremarkable. His blood pressure is elevated which I think does account for his lightheadedness dizziness headache etc. He did already take his morning blood pressure medications he takes the BenzePrO in the morning the amlodipine at night and carvedilol twice daily. Do not think there is any room to go up on his carvedilol as his heart rate is already significantly depressed in the 60s. We will add hydralazine 25 3 times daily have him follow-up with his primary care doctor within the week to reevaluate his blood pressure. Increase his pantoprazole to 40 mg twice daily. Chest x- ray did not show any abnormalities suggesting other causes of chest pain. No pneumothorax no pneumonia no widened mediastinum no cardiomegaly. His vital signs did not show any evidence of PE. Lab Data 11/21/22 08:10 11/21/22 08:10 Laboratory Results WBC 10.3 10^3/uL (4.0-10.0) H 11/21/22 08:10 RBC 5.32 10^6/uL (4.1-5.3) H 11/21/22 08:10 Hgb 15.7 g/dL (11.7-16.6) 11/21/22 08:10 Hct 44.6 % (42.0-52.0) 11/21/22 08:10 MCV 83.8 fl (80-94) 11/21/22 08:10 MCH 29.5 pg (28.0-34.0) 11/21/22 08:10 MCHC 35.2 g/dL (30.0-36.0) 11/21/22 08:10 RDW 12.5 % (12.1-15.1) 11/21/22 08:10 Plt Count 386 10^3/cmm (130-400) 11/21/22 08:10 MPV 8.9 fL (7.4-10.4) 11/21/22 08:10 Neut % (Auto) 66.6 % 11/21/22 08:10 Lymph % (Auto) 23.4 % 11/21/22 08:10 [place] % (Auto) 8.3 % 11/21/22 08:10 Eos % (Auto) 0.5 % 11/21/22 08:10 Baso % (Auto) 0.5 % 11/21/22 08:10 Neut # (Auto) 6.87 10^3/uL (1.8-7.7) 11/21/22 08:10 Lymph # (Auto) 2.4 10^3/uL (0.8-4.8) 11/21/22 08:10 [place] # (Auto) 0.9 10^3/uL (0.2-0.9) 11/21/22 08:10 Eos # (Auto) 0.1 10^3/uL (0.0-0.8) 11/21/22 08:10 Baso # (Auto) 0.1 10^3/uL (0.0-0.1) 11/21/22 08:10 Nucleated RBC % (auto) 0 % 11/21/22 08:10 Nucleated RBCs # 0.0 /100WBC 11/21/22 08:10 Potassium 3.5 mmol/L (3.5-5.1) 11/21/22 08:10 Carbon Dioxide 23 mmol/L (22-29) 11/21/22 08:10 Anion Gap 14.5 (5-19) 11/21/22 08:10 BUN 12 mg/dL (8-23) 11/21/22 08:10 Creatinine 0.8 mg/dL (0.7-1.2) 11/21/22 08:10 GFR Calculation 96.7 mL/min (90-130) 11/21/22 08:10 Glucose 112 mg/dL (65-115) 11/21/22 08:10 Calcium 9.6 mg/dL (8.5-10.5) 11/21/22 08:10 Total Bilirubin 0.5 mg/dL (0.15-1.2) 11/21/22 08:10 AST 18 U/L (0-40) 11/21/22 08:10 ALT 15 U/L (0-41) 11/21/22 08:10 Alkaline Phosphatase 71 U/L (40-130) 11/21/22 08:10 Troponin T Baseline 6 ng/L (0-15) 11/21/22 08:10 Total Protein 7.8 g/dL (6.6-8.7) 11/21/22 08:10 Albumin 4.8 g/dL (3.5-5.2) 11/21/22 08:10 Globulin 3.0 g/dL (1.3-4.6) 11/21/22 08:10 Discharge Plan Discharge Patient Disposition: Home Clinical Impression: Benign essential HTN, Atypical chest pain Condition: Stable Prescriptions: New hydralazine 25 mg tablet 25 mg PO TID Qty: 90 0RF pantoprazole 40 mg tablet,delayed release (DR/EC) 40 mg PO BID Qty: 60 0RF Discontinued pantoprazole 40 mg tablet,delayed release (DR/EC) 40 mg PO DAILY Qty: 90 3RF No Action amlodipine 10 mg tablet 10 mg PO DAILY 90 Days Qty: 90 0RF carvedilol 6.25 mg tablet 6.25 mg PO BID 90 Days Qty: 180 0RF Rx Instructions: Starting 10/27 increased to 2 tab in PM, 1 tab in AM. aspirin 81 mg tablet,delayed release (DR/EC) 81 mg PO DAILY 90 Days Qty: 90 0RF nitroglycerin 0.3 mg tablet, sublingual 0.3 mg sublingual Q5M PRN (Reason: as needed for chest pain) 30 Days Qty: 10 0RF Rx Instructions: do not exceed 3 doses per episode. pravastatin 40 mg tablet 40 mg PO DAILY@1830 celecoxib [Celebrex] 200 mg capsule 200 mg PO DAILY 30 Days Qty: 30 0RF tramadol 50 mg tablet 50 mg PO DAILY PRN (Reason: pain) 30 Days Qty: 15 0RF benazepril-hydrochlorothiazide 20-12.5 mg tablet 1 tab PO DAILY@0630 Discharge Orders: Discharge ED (Routine); Ordered 11/21/22 Ordered By: Albert Bryant Referrals: Sergio Sweeney FNP [Primary Care Provider] - Discharge Diet: Usual diet Discharge Activity: Resume usual activity Patient Instructions: Opioid Safety, Pain Management Activity Restrictions/Additional Instructions: You are seen today for chest discomfort as well as dizziness and headache. Your dizziness and headaches seem to be caused by elevated blood pressure. Your previous cardiac evaluation with Lexiscan sestamibi stress test done 1 month ago was negative your cardiac enzymes and your EKG today were normal. Suspect the chest discomfort is likely from noncardiac sources your chest x-ray was also normal. We will add hydralazine 25 mg 3 times a day and have you follow-up with your primary care doctor within the next week. Coding Level of Care Code ED Field Technical Specialist for Markus Tobar
[2022-11-21 08:21] LABS: Basophils # 0.1 10^3/uL (0.0-0.1); Basophils % 0.5 %; Eosinophils # 0.1 10^3/uL (0.0-0.8); Eosinophils % 0.5 %; Hematocrit 44.6 % (42.0-52.0); Hemoglobin 15.7 g/dL (11.7-16.6); Lymphocytes # 2.4 10^3/uL (0.8-4.8); Lymphocytes % 23.4 %; Mean Corpuscular HGB Conc 35.2 g/dL (30.0-36.0); Mean Corpuscular Hemoglobin 29.5 pg (28.0-34.0); Mean Corpuscular Volume 83.8 fl (80-94); Mean Platelet Volume 8.9 fL (7.4-10.4); Monocytes # 0.9 10^3/uL (0.2-0.9); Monocytes % 8.3 %; Neutrophils # 6.87 10^3/uL (1.8-7.7); Neutrophils % 66.6 %; Nucleated Red Blood Cells % 0 %; Platelet Count 386 10^3/cmm (130-400); Red Blood Count 5.32 10^6/uL (4.1-5.3); Red Cell Distribution Width 12.5 % (12.1-15.1); White Blood Count 10.3 10^3/uL (4.0-10.0)
[2022-11-21 08:35] LABS: Alanine Aminotransferase 15 U/L (0-41); Albumin Level 4.8 g/dL (3.5-5.2); Alkaline Phosphatase 71 U/L (40-130); Aspartate Amino Transferase 18 U/L (0-40); Blood Urea Nitrogen 12 mg/dL (8-23); Calcium 9.6 mg/dL (8.5-10.5); Carbon Dioxide 23 mmol/L (22-29); Glomerular Filtration Rate 96.7 mL/min (90-130); Glucose 112 mg/dL (65-115); Total Bilirubin 0.5 mg/dL (0.15-1.2); Total Protein 7.8 g/dL (6.6-8.7)
[2022-11-21 08:36] LABS: Troponin(5th) Baseline 6 ng/L (0-15)
[2022-11-21] MEDS: hyDRALAzine 20 mg/mL INJ 1 mL IVP (08:49)
[2022-11-21 08:52] VITALS: BP 129/73; PULSE 67; O2SAT 96
[2022-11-21 09:00] LABS: Chloride 85 mmol/L (98-107); Osmolality Calculated 257 mOsm/kg (285-295); Sodium 123 mmol/L (136-145)
[2022-11-21 09:01] LABS: Anion Gap 18.6 (5-19); Potassium 3.6 mmol/L (3.5-5.1)
== END 2022-11-21 09:00 | disposition home or self-care (01) ==
PROVIDERS: Emergency Provider Family Medicine; PCP Nurse Practitioner Family
DX: R07.89 Other chest pain (principal); I10 Essential (primary) hypertension; Z79.82 Long term (current) use of aspirin; F17.210 Nicotine dependence, cigarettes, uncomplicated
CPT/HCPCS: 71045; 80053; 84484; 85025; 93005; 96374; 99285; J0360

== ENCOUNTER 2022-12-20 08:25 | Outpatient (CLI) | payer MEDICARE, MEDICAID, SELFPAY ==
--- NOTE | 2022-12-20 08:48 | CT_ITS ---
WS: [id number] LDCT LUNG CANCER SCREENING HISTORY: NICOTINE DEPENDENCE, CIGARETTES TECHNIQUE: Axial imaging performed from the apices to 1 cm below the costophrenic angles. Coronal and sagittal reformats are submitted with axial MIP series. All CT scans at [facility] use at least one of these dose optimization techniques: automated exposure control; mA and/or kV adjustment per patient size (includes targeted exams where dose is matched to clinical indication); or iterativ e reconstruction. DLP: 77.51 mGy.cm DIvol: Mean CTDIvol: 1.60 (mGy) COMPARISON: None available. Diagnostic quality: Satisfactory Lungs: No suspicious pulmonary mass or nodule. 3 mm pleural nodule at the RIGHT lung base. No endobro nchial lesions. Heart: Normal size heart with no pericardial effusion.. Other findings: Moderate coronary artery calcifications. Mild atherosclerosis aorta. Normal size pulm onary artery. No mediastinal or hilar adenopathy. Small hiatal hernia. No adrenal mass. CT/CT lung screening [id number] IMPRESSION: LUNG-RADS: 2-Benign Appearance or Behavior FOLLOW UP: 12 Month: Continue annual screening with LDCT OTHER FINDINGS (S MODIFIER): None.
== END 2022-12-20 08:26 | disposition home or self-care (01) ==
LOC: RAD 08:29
PROVIDERS: PCP Nurse Practitioner Family; Visit Provider Family Medicine
DX: Z12.2 Encounter for screening for malignant neoplasm of respiratory organs (principal); Z87.891 Personal history of nicotine dependence
CPT/HCPCS: 71271

== ENCOUNTER → 2023-03-05 10:10 | Outpatient (BNVA) | payer MEDICARE, MEDICAID, SELFPAY | PROVIDERS: PCP Family Medicine; Visit Provider Internal Medicine Cardiovascular Disease | DX: R07.9 Chest pain, unspecified (principal); I10 Essential (primary) hypertension; F17.210 Nicotine dependence, cigarettes, uncomplicated; K21.9 Gastro-esophageal reflux disease without esophagitis; M50.30 Other cervical disc degeneration, unspecified cervical region | CPT/HCPCS: 93005; 99214 ==

== ENCOUNTER → 2023-04-02 12:37 | Outpatient (BNVA) | payer MEDICARE, MEDICAID, SELFPAY | PROVIDERS: PCP Family Medicine; Visit Provider Nurse Practitioner Family | DX: R07.89 Other chest pain (principal); I10 Essential (primary) hypertension; F17.210 Nicotine dependence, cigarettes, uncomplicated; Z79.01 Long term (current) use of anticoagulants | CPT/HCPCS: 36415; 80048; 83880; 85025; 85610; 99214 ==

== ENCOUNTER 2023-04-16 07:03 | Outpatient (CLI) | payer MEDICARE, MEDICAID, SELFPAY ==
[2023-04-16] VITALS (15 sets, daily range): BP systolic 108–163; BP diastolic 73–91; PULSE 50–66; RESP 18–25; TEMP 36.8; O2SAT 93–100; BMI 28.2
--- NOTE | 2023-04-16 07:30 | XACV_ITS ---
Exam Room: 2 Ht: 175 cm Wt: 87 kg BSA: 2.07 m2 Gender: Male : 1955 Any Known Allergies: No known allergies Exam Priority: Routine Procedure(s): Procedure Description: Diagnostic procedure Procedure Description: Left Heart Catheterization Procedure Description: Left ventriculography Procedure Description: Coronary Angiography Diagnostic Cath Status: Elective Diagnostic Findings * 67-year-old man with past medical history of hypertension and GERD. To have chest pressure in spite of having a normal stress test earlier this year. He is here for coronary angiogram for evaluation of his worsening chest discomfort and shortness of breath.. * No disease noted in the short Left Main and Left Anterior Descending. * Minimal luminal irregularity in proximal and mid right coronary artery. * Mild 20% narrowing in proximal circumflex at the takeoff of first major obtuse marginal branch. * Coronary angiography shows co-dominance. Conclusions 1. Minor luminal irregularities in circumflex and right coronary artery. 2. Normal left ventricular systolic function. Ejection fraction of 65%. Recommendations * Continue current medical management and risk factor modification. LV EDP: 17 mmHg Ventriculography Ejection Fraction: 65.0 % Left Ventriculography Findings: * Normal left ventricular size and systolic function. * Left ventriculogram was performed in CALL view. * Normal valves. Pressures Phase:Rest AO : 101 / 59 ( 75 ) @ 10:07:00 AM 94 / 69 ( 81 ) @ 10:07:00 AM 91 / 59 ( 74 ) @ 10:10:00 AM 83 / 57 ( 71 ) @ 10:15:00 AM 121 / 18 ( 77 ) @ 10:23:00 AM LV : 126 / 0 / 17 @ 10:22:00 AM 131 / -4 / 17 @ 10:23:00 AM Clinical Evaluation EBL: 5mL-10mL Procedural Details Procedure Consent Obtained. Pre-Procedure Time Out. Identified patient by full name and date of as verbalized by the patient/guarantor. Does the consent match the physician's order: Yes. Accurate & Complete Informed Consent: Yes. Inpatient/Outpatient History & Physical on Chart: Yes. If H&P is completed, is and addenduem needed: No; If yes, is the addendum complete: N/A. Visualize and Verify Site with Patient/Guarantor: N/A. Relevant Radiology Images available: Yes. The risks, benefits, and alternatives of sedation and/or procedure were discussed by physician. The patient agrees to continue. Procedure started. [facility] Clinical Fraility Score: 3: Managing Well. Fourdrinier Operator Indications: Worsening Angina. Baseline sample Acquired. HR: 60 BPM. Chest Pain Symptom Assessment: Typical Angina Symptoms. Correct patient, site and procedure confirmed by cath team. Current diagnosis: Chest Pain. PERRLA. Strong, equal hand management manager bilaterally. Lungs clear x 5 lobes. IV Site on Arrival: 20 gauge in the left anticubital. IV Fluids: 0.9% NaCl at KVO. 0 mL infused prior to labor specialist. Pre Procedural Pulses: bilateral dorsalis pedis was 3+. Pre Procedural Pulses: bilateral posterior tibial was 3+. Pre Procedural Pulses: bilateral radial was 3+. Oxygen started at 2liters/min via nasal canula. right groin was prepped with chloroprep then draped in the usual sterile fashion. right radial was prepped with chloroprep then draped in the usual sterile fashion. Physician notified. Baseline sample Acquired. HR: 58 BPM. Physician arrived. Physician scrubbed in. Immediate Pre-Procedure Time Out. Correct Patient: Yes; Correct Procedure: Yes; Correct Site: Yes; Correct Patient Position: Yes; Correct Supplies: Yes; Dried Flammable Prep: Yes; Blood Products Available: N/A;. Lidocaine 1% infiltrated to the right radial. An attempt to gain access to the right radial artery was unsuccessful. Manual pressure was held as needed to stop the bleeding. Arterial access obtained. A 5 [place] TIG catheter in over wire. Multiple views taken of left coronary artery. Catheter redirected to the RCA. Multiple views taken of right coronary artery. Catheter removed over the exchange wire. A 5 [place] Angled Pig catheter in over exchange wire. EDP Sample taken: LV 126/-1,17; HR: 67 BPM; SpO2: 97%. LV gram performed in CALL @ 10 mL/second for a total of 30 mL. EDP Sample taken: LV 131/-5,17; HR: 57 BPM; SpO2: 99%. Pullback taken: LV Off; AO Off; Mean: , Peak to Peak: , SEP: ; HR: 65 BPM; SpO2: 98%. Catheter out. Physician review of cine films. Physician scrubbed out. A TR Band was successful obtaining hemostatsis at the Right Radial artery insertion site. Post Procedure: Pulses reassessed and unchanged. PERRLA. Strong, equal hand management manager bilaterally. Medication's Wasted: Lidocaine 1% = 3 mL. Medication's Wasted: Nitro = 49.7 mg. Medication's Wasted: Heparin = 1000 units. Medication's Wasted: Other = Versed 1 mg. Medication's Wasted: Other = Fentanyl 25 mcg. Total IV fluids: 43 mL. Estimated blood loss: 5mL-10mL. Responsiveness - Normal response to verbal stimuli; alert and oriented, PERRLA. Airway - Unaffected, no intervention required; spontaneous ventilation. Circulation: W/N/L, pulses unchanged. Nausea/Vomiting: No. Procedure completed. Patient transferred by wheelchair to CPRU. Vital chart was stopped. Access Site Site: Right Radial artery Sheath Size: 6 Fr Hemostasis Method: TR Band Hemostasis Success: Successful Procedure Medications Start: 8:55 AM Stop: 8:55 AM Medication: Versed Amount: 1 mg Route: I.V. Start: 8:55 AM Stop: 8:55 AM Medication: Fentanyl Amount: 25 mcg Route: I.V. Start: 8:59 AM Stop: 8:59 AM Medication: Versed Amount: 1 mg Route: I.V. Start: 9:02 AM Stop: 9:02 AM Medication: Fentanyl Amount: 25 mcg Route: I.V. Start: 9:04 AM Stop: 9:04 AM Medication: Nitrogylcerin Amount: 200 mcg Route: I.A. Start: 9:06 AM Stop: 9:06 AM Medication: Heparin Amount: 5000 units Route: I.V. Start: 9:10 AM Stop: 9:10 AM Medication: Versed Amount: 1 mg Route: I.V. Start: 9:14 AM Stop: 9:14 AM Medication: Nitrogylcerin Amount: 100 mcg Route: I.A. I, the attending physician, have reviewed and verified all procedure medications. Yes, all medications given per verbal order History/Risk Factors Hypertension: Yes Dyslipidemia: No Peripheral Arterial Disease (PAD): No Myocardial Infarction (ID): No Obesity: No Renal Disease: No Tobacco Use: Current/Recent(w/in 1 year) Prior Interventions PCI: No CABG: No Valve Surgery: No Report Signatures Finalized by Gela Mason MD on 04/24/2023 05:14 PM
[2023-04-16] MEDS: diphenhydrAMINE 50 mg Capsule PO (07:40)
--- NOTE | 2023-04-16 08:49 | W.PM.OPSUD ---
Surgery/Procedure H&P Update DATE OF PROCEDURE: April 16, 2023 DATE H&P PERFORMED: 04/02/23 H&P UPDATE INFORMATION: I have reviewed H&P completed within last 30 days, I have examined patient prior to procedure and No changes to prior documentation PREOP DIAGNOSIS: Worseing chest pain inspite of normal stress test PRIMARY INDICATION FOR PROCEDURE: Worseing chest pain inspite of normal stress test PLANNED PROCEDURE: Operation Date: 04/16/23 08:[address] [facility] [address] R07.9, I10(Left) - Gela Mason MD PATIENT REASSESSED PRIOR TO SEDATION, WITH NO CHANGE NOTED: Yes PHYSICAL EXAM: alert, oriented x 3 and regular rate & rhythm AIRWAY EVAL/ANESTHESIA PLAN: ASA III, Monitored Anesthesia, Local Anesthesia, Risks, benefits & alternatives of sedation and/or procedure discussed and Patient agrees to continue as planned
--- NOTE | 2023-04-16 09:30 | PC.NURSE ---
Received pt from dental laboratory technician apprentice post diagnostic left heart cath. Pt alert and oriented x3. Pt complains of no pain. TR band on right wrist with distal pulse palpable. Pt attached to vitals machine and will be monitored per protocol. Plan is to dc from CPRU. Pt educated on restrictions of right wrist and acknowledged understanding.
== END 2023-04-16 13:09 | disposition home or self-care (01) ==
PROVIDERS: PCP Family Medicine; Visit Provider Internal Medicine Cardiovascular Disease
DX: R07.9 Chest pain, unspecified (principal); I10 Essential (primary) hypertension; K21.9 Gastro-esophageal reflux disease without esophagitis; F17.200 Nicotine dependence, unspecified, uncomplicated
CPT/HCPCS: 36415; 93458; 96365; 99152; 99153; C1769; C1887; C1894; J1644; J2250; J3010; J3490; J7030; Q0163; Q9967

== ENCOUNTER 2023-04-25 11:21 | Outpatient (CLI) | payer MEDICARE, MEDICAID, SELFPAY ==
[2023-04-25 12:31] LABS: Anion Gap 14.9 (5-19); Blood Urea Nitrogen 14 mg/dL (8-23); Calcium 9.6 mg/dL (8.5-10.5); Carbon Dioxide 25 mmol/L (22-29); Chloride 92 mmol/L (98-107); Glomerular Filtration Rate 84.4 mL/min (90-130); Glucose 100 mg/dL (65-115); Osmolality Calculated 265 mOsm/kg (285-295); Potassium 4.9 mmol/L (3.5-5.1); Sodium 127 mmol/L (136-145)
== END 2023-04-25 11:22 | disposition home or self-care (01) ==
PROVIDERS: PCP Family Medicine; Visit Provider Internal Medicine Cardiovascular Disease
DX: Z98.890 Other specified postprocedural states (principal)
CPT/HCPCS: 36415; 80048

== ENCOUNTER → 2023-07-02 10:24 | Outpatient (BNVA) | payer MEDICARE, MEDICAID, SELFPAY | PROVIDERS: PCP Family Medicine; Visit Provider Internal Medicine Cardiovascular Disease | DX: R07.9 Chest pain, unspecified (principal); I10 Essential (primary) hypertension; F17.210 Nicotine dependence, cigarettes, uncomplicated | CPT/HCPCS: 99214 ==

== ENCOUNTER → 2023-09-18 10:35 | Outpatient (BNVA) | payer MEDICARE, MEDICAID, SELFPAY | PROVIDERS: PCP Family Medicine; Referring Provider Family Medicine; Visit Provider Anesthesiology Pain Medicine | DX: M47.816 Spondylosis without myelopathy or radiculopathy, lumbar region; M50.30 Other cervical disc degeneration, unspecified cervical region; M51.16 Intervertebral disc disorders with radiculopathy, lumbar region; M43.16 Spondylolisthesis, lumbar region | CPT/HCPCS: 72110; 99204 ==

== ENCOUNTER 2023-10-17 10:27 | Outpatient (CLI) | payer MEDICARE, MEDICAID, SELFPAY ==
--- NOTE | 2023-10-17 11:00 | MR_ITS ---
WS: [id number] MRI LUMBAR SPINE WITH CONTRAST TECHNIQUE: Sagittal T1, T2 and STIR imaging. Axial T1 and T2 imaging. Post gadolinium imaging was obt ained. CLINICAL INFORMATION: M47.816 - Spondylosis without myelopathy or radiculopathy... COMPARISON: MRI 2017 FINDINGS: Mild lumbar curve. No acute compression. Slight anterolisthesis L5 on S1 with chronic spondylolysis. Grade 1 anterolisthesis is unchanged since 2017. Grade 1 anterolisthesis measures 6 mm. Endplate dege nerative changes L4-5 with reactive enhancement. L1-L2: Mild disc bulge with mild central canal stenosis. Slight narrowing of the subarticular recess bilaterally. Mild facet arthropathy. Mild bilateral foraminal narrowing. L2-L3: Mild disc bulging with slight effacement of the ventral thecal sac. Mild facet arthropathy. Mi ld LEFT and no significant RIGHT foraminal narrowing. L3-L4: Mild disc bulge with moderate facet arthropathy. Moderate central canal stenosis. This is prog ressed compared to previous. Moderate bilateral foraminal narrowing impinges the exiting L3 nerve maria ines ts bilaterally LEFT greater than RIGHT. This appears progressed compared to previous. L4-L5: Mild disc bulging with moderate central canal stenosis. Impingement traversing RIGHT greater than LEFT L5 nerve roots. Moderate facet arthropathy. Moderate to severe RIGHT and moderate LEFT fora bharat narrowing. Moderate facet arthropathy. L5-S1: Grade 1 anterolisthesis with chronic spondylolysis. Slight impingement traversing S1 nerve maria ines ts bilaterally. Moderate facet arthropathy. Moderate LEFT and mild RIGHT bony foraminal narrowing. Partially visualized sigmoid diverticulosis. Visualized pelvic bony structures: Normal. Paravertebral soft tissues: Normal. Moderate spondylitic changes cervical spine on the sales attendant building materials imaging with grade 1 anterolisthesis at C5-C 6. Mild central canal stenosis C3-C6. IMPRESSION: 1. Mild lumbar curve. No acute compression. Stable grade 1 anterolisthesis L5 on S1 with chronic spo ndylolysis. 2. Moderate central canal stenosis L3-4 and L4-5 due to disc bulging in combination with facet arthr opathy and ligamentum flavum hypertrophy. This is progressed compared to previous. 3. Small bilateral foraminal protrusions L3-4 with moderate bilateral foraminal narrowing and slight impingement on the exiting L3 nerve roots bilaterally. 4. Moderate to severe RIGHT and moderate LEFT bony foraminal narrowing L4-5. 5. Moderate LEFT L5-S1 foraminal narrowing. 6. Moderate facet arthropathy L3-L5. 7. Edema with endplate degenerative changes L4-5 with enhancement is likely reactive and degenerativ e. Early discitis is much less likely but recommend correlation for infectious symptoms.
[2023-10-17] MEDS: gadobenate dimeglumine 20 mL vial IV (11:18)
== END 2023-10-17 10:28 | disposition home or self-care (01) ==
LOC: RAD 10:28
PROVIDERS: PCP Family Medicine; Visit Provider Anesthesiology Pain Medicine
DX: M47.816 Spondylosis without myelopathy or radiculopathy, lumbar region (principal); M50.30 Other cervical disc degeneration, unspecified cervical region; M43.07 Spondylolysis, lumbosacral region; M48.07 Spinal stenosis, lumbosacral region
CPT/HCPCS: 72158; A9577

== ENCOUNTER → 2023-10-31 09:08 | Outpatient (BNVA) | payer MEDICARE, MEDICAID, SELFPAY | PROVIDERS: PCP Family Medicine; Visit Provider Anesthesiology Pain Medicine | DX: M50.30 Other cervical disc degeneration, unspecified cervical region; M51.16 Intervertebral disc disorders with radiculopathy, lumbar region; M43.16 Spondylolisthesis, lumbar region | CPT/HCPCS: 99214 ==

== ENCOUNTER → 2023-11-12 14:02 | Outpatient (BNVA) | payer MEDICARE, MEDICAID, SELFPAY | PROVIDERS: PCP Family Medicine; Visit Provider Anesthesiology Pain Medicine | DX: M54.16 Radiculopathy, lumbar region (principal) | CPT/HCPCS: 64483; 64484; J1100; J3490 ==

== ENCOUNTER → 2023-12-05 08:46 | Outpatient (BNVA) | payer MEDICARE, MEDICAID, SELFPAY | PROVIDERS: PCP Family Medicine; Visit Provider Anesthesiology Pain Medicine | DX: M50.30 Other cervical disc degeneration, unspecified cervical region; M51.16 Intervertebral disc disorders with radiculopathy, lumbar region; M43.16 Spondylolisthesis, lumbar region | CPT/HCPCS: 99214 ==

== ENCOUNTER → 2023-12-19 12:58 | Outpatient (BNVA) | payer MEDICARE, MEDICAID, SELFPAY | PROVIDERS: PCP Family Medicine; Visit Provider Anesthesiology Pain Medicine | DX: M54.16 Radiculopathy, lumbar region (principal) | CPT/HCPCS: 64483; 64484 ==

== ENCOUNTER → 2024-01-07 10:20 | Outpatient (BNVA) | payer MEDICARE, MEDICAID, SELFPAY | PROVIDERS: PCP Family Medicine; Visit Provider Internal Medicine Cardiovascular Disease | DX: I10 Essential (primary) hypertension (principal); R07.9 Chest pain, unspecified; F17.210 Nicotine dependence, cigarettes, uncomplicated | CPT/HCPCS: 99213 ==

== ENCOUNTER → 2024-01-08 09:01 | Outpatient (BNVA) | payer MEDICARE, MEDICAID, SELFPAY | PROVIDERS: PCP Family Medicine; Visit Provider Anesthesiology Pain Medicine | DX: M50.30 Other cervical disc degeneration, unspecified cervical region; M51.16 Intervertebral disc disorders with radiculopathy, lumbar region; M43.16 Spondylolisthesis, lumbar region; M47.816 Spondylosis without myelopathy or radiculopathy, lumbar region; M48.061 Spinal stenosis, lumbar region without neurogenic claudication; M51.26 Other intervertebral disc displacement, lumbar region | CPT/HCPCS: 99214 ==

== ENCOUNTER → 2024-01-17 14:49 | Outpatient (BNVA) | payer MEDICARE, MEDICAID, SELFPAY | PROVIDERS: PCP Family Medicine; Visit Provider Orthopaedic Surgery | DX: M54.9 Dorsalgia, unspecified (principal); M48.062 Spinal stenosis, lumbar region with neurogenic claudication | CPT/HCPCS: 36415; 81003; 85025; 99204 ==

== ENCOUNTER 2024-01-18 10:05 | Outpatient (CLI) | payer MEDICARE, MEDICAID, SELFPAY ==
[2024-01-18 10:42] LABS: Alanine Aminotransferase 14 U/L (0-41); Albumin Level 4.3 g/dL (3.5-5.2); Alkaline Phosphatase 72 U/L (40-130); Anion Gap 15.8 (5-19); Aspartate Amino Transferase 13 U/L (0-40); Blood Urea Nitrogen 13 mg/dL (8-23); Calcium 9.2 mg/dL (8.5-10.5); Carbon Dioxide 24 mmol/L (22-29); Chloride 91 mmol/L (98-107); Glomerular Filtration Rate 66.8 mL/min (90-130); Glucose 110 mg/dL (65-115); Osmolality Calculated 263 mOsm/kg (285-295); Potassium 4.8 mmol/L (3.5-5.1); Sodium 126 mmol/L (136-145); Total Bilirubin 0.4 mg/dL (0.15-1.2); Total Protein 7.3 g/dL (6.6-8.7)
== END 2024-01-18 10:06 | disposition home or self-care (01) ==
LOC: LAB 10:06
PROVIDERS: PCP Family Medicine; Visit Provider Orthopaedic Surgery
DX: M54.9 Dorsalgia, unspecified (principal); Z79.899 Other long term (current) drug therapy
CPT/HCPCS: 80053

== ENCOUNTER → 2024-02-01 10:46 | Outpatient (BNVA) | payer MEDICARE, MEDICAID, SELFPAY | PROVIDERS: PCP Family Medicine; Visit Provider Family Medicine | DX: Z01.818 Encounter for other preprocedural examination (principal); R00.1 Bradycardia, unspecified | CPT/HCPCS: 80048; 93005 ==

== ENCOUNTER 2024-02-13 08:20 | Outpatient (CLI) | payer MEDICARE, MEDICAID, SELFPAY ==
[2024-02-13 08:57] LABS: Alanine Aminotransferase 14 U/L (0-41); Albumin Level 4.3 g/dL (3.5-5.2); Alkaline Phosphatase 69 U/L (40-130); Anion Gap 14.2 (5-19); Aspartate Amino Transferase 15 U/L (0-40); Blood Urea Nitrogen 11 mg/dL (8-23); Calcium 9.3 mg/dL (8.5-10.5); Carbon Dioxide 24 mmol/L (22-29); Chloride 100 mmol/L (98-107); Glomerular Filtration Rate 74.5 mL/min (90-130); Glucose 118 mg/dL (65-115); Osmolality Calculated 276 mOsm/kg (285-295); Potassium 5.2 mmol/L (3.5-5.1); Sodium 133 mmol/L (136-145); Total Bilirubin 0.5 mg/dL (0.15-1.2); Total Protein 7.3 g/dL (6.6-8.7)
== END 2024-02-13 08:21 | disposition home or self-care (01) ==
LOC: LAB 08:23
PROVIDERS: PCP Family Medicine; Visit Provider Orthopaedic Surgery
DX: M54.9 Dorsalgia, unspecified (principal)
CPT/HCPCS: 36415; 80053

== ENCOUNTER 2024-02-18 13:50 | Observation (INO) | payer MEDICARE, MEDICAID, SELFPAY ==
[2024-02-18] VITALS (18 sets, daily range): BP systolic 132–168; BP diastolic 70–97; PULSE 68–80; RESP 10–33; TEMP 36.1–37; O2SAT 96–100; BMI 27.3
[2024-02-18] MEDS: sodium chloride 0.9% 1,000 ML 30 ML IV (08:21)
--- NOTE | 2024-02-18 09:25 | ANES.PREANE2 ---
Pre-Anesthetic Assessment Height/Weight: Height 1.73 m Weight 81.647 kg Temp Pulse Resp BP Pulse Ox O2 Del Method 98.5 F 73 18 162/79 97 Room Air 02/18/24 08:18 02/18/24 08:18 02/18/24 08:18 02/18/24 08:18 02/18/24 08:18 02/18/24 08:18 Preop Diagnosis: Lumbar stenosis with neurogenic claudication Operation Date: 02/18/24 09:45 Proposed Procedures p Lumbar Spine Decompression Lumbar Decompression(Not Applicable) - Mati Leal, DO Familial anesthetic complications: None Was Beta Claire taken within 24 hours: N/A Was Clonidine taken within 24 hours: N/A Last intake: Intake Last Liquid Date 02/17/24 Last Liquid Time 22:00 Last Solid Date 02/17/24 Last Solid Time 22:00 Social No tobacco Exam alert, oriented x 3, clear to auscultation bilaterally and regular rate & rhythm Airway Mallampati: Class I Dentition: other (no teeth on top) CV/HEM Hypertension GI Gastroesophageal Reflux Disease Metabolic Hyperlipidemia Anesthetic Plan ASA status: 3 Anesthesia: General Risk of > 500 ml blood loss (7ml/kg in children): No Medications/Allergies Home Medications Medication Instructions Recorded Confirmed Last Taken Type benazepril 20 1 tab PO DAILY@0630 01/31/21 02/15/24 02/17/24 History mg-hydrochlorothiazide 12.5 mg tablet aspirin 81 mg tablet,delayed 81 mg PO DAILY 90 days #90 tabs 08/31/22 02/15/24 02/13/24 Rx release pantoprazole 40 mg tablet,delayed 40 mg PO BID #60 tabs 11/21/22 02/15/24 02/17/24 Rx release amlodipine 10 mg tablet 10 mg PO DAILY 03/05/23 02/15/24 02/17/24 History meloxicam 7.5 mg tablet 7.5 mg PO DAILY 03/05/23 02/15/24 02/13/24 History nitroglycerin 0.3 mg sublingual 0.3 mg sublingual Q5M PRN as 03/05/23 02/18/24 Unknown Rx tablet needed for chest pain #30 tabs isosorbide mononitrate 30 mg 30 mg PO BID #60 tabs 04/16/23 02/15/24 02/17/24 Rx tablet,extended release 24 hr pravastatin 40 mg tablet 20 mg PO DAILY@1830 07/02/23 02/15/24 02/17/24 History carvedilol 12.5 mg tablet 12.5 mg PO BID #180 tabs 10/18/23 02/15/24 02/17/24 Rx gabapentin 600 mg tablet 600 mg PO TID #90 tabs 02/07/24 02/15/24 02/17/24 Rx Allergies Allergy/AdvReac Type Severity Reaction Status Date / Time No Known Allergies Allergy Verified 02/18/24 08:24 Current Medications Generic Name Dose Route Start Last Admin Trade Name Freq PRN Reason Stop Dose Admin Sodium Chloride 1,000 mls @ 30 mls/hr 02/18/24 08:15 02/18/24 08:21 Sodium Chloride 0.9% IV 02/19/24 08:14 30 mls/hr .Q24H CARL Administration PFSH Anesthesia Medical History GERD (gastroesophageal reflux disease) Encounter for long-term opiate analgesic use Opioid contract exists Back pain with radiation Facet arthritis of lumbar region Degenerative disc disease, cervical Long-term use of high-risk medication Smoker Surgical History History of colonoscopy with polypectomy 2016 S/P appendectomy S/P cataract extraction RIGHT EYE DR SARMIENTO Status post lens implant LEFT EYE Family History Mother Myocardial infarction Hypertension Sister Myocardial infarction Hypertension Family/Other Stroke Father Hypertension Brother Hypertension Diabetes Other Heart disease Social History Smoking and tobacco/nicotine status: current every day tobacco/nicotine user cigarettes Packs smoked per day: 0.5 Years cigarettes smoked: 40 [ Other cigarette details: slowed down] Alcohol intake: former Former alcohol use details: Quit 10 years ago Substance/Drug Use: never Adopted: No Caregiver/support person: No Lives independently: Yes service: No Current occupational status: disabled Sexually active: Yes Do you think of yourself as: Straight/Heterosexual Current gender identity: Male Data Anesthesia Cardiac Studies: Sestamibi Stress Test (Cardiology) 10/24/22
[2024-02-18 10:29] LABS: Blood Urea Nitrogen 9 mg/dL (8-23); Calcium 9.8 mg/dL (8.5-10.5); Carbon Dioxide 23 mmol/L (22-29); Chloride 99 mmol/L (98-107); Creatinine Clr Calc Pharmacy 83.0249; Glomerular Filtration Rate 84.2 mL/min (90-130); Glucose 96 mg/dL (65-115); Osmolality Calculated 277 mOsm/kg (285-295); Sodium 134 mmol/L (136-145)
[2024-02-18 10:43] LABS: Anion Gap 16.4 (5-19); Potassium 4.4 mmol/L (3.5-5.1)
--- NOTE | 2024-02-18 11:20 | W.PM.OPSUD ---
Surgery/Procedure H&P Update DATE OF PROCEDURE: February 18, 2024 DATE H&P PERFORMED: 02/01/24 H&P UPDATE INFORMATION: I have reviewed H&P completed within last 30 days, I have examined patient prior to procedure and No changes to prior documentation PREOP DIAGNOSIS: Lumbar stenosis with neurogenic claudication PLANNED PROCEDURE: Operation Date: 02/18/24 09:45 Proposed Procedures p Lumbar Spine Decompression Lumbar Decompression(Not Applicable) - Mati Leal DO
[2024-02-18] MEDS: ceFAZolin 2,000 MG in sodium chloride 0.9% (plus) 50 ML 100 MG IV ×2 (12:02→19:58)
[2024-02-18] MEDS: lidocaine-epi 2% PF 1:200,000 20 mL SDV XX (12:34)
[2024-02-18] MEDS: vancomycin 1,000 MG SDV 1000 MG XX (13:00)
[2024-02-18] MEDS: fentaNYL 50 mcg/mL INJ 2mL IVP (14:20)
[2024-02-18] MEDS: albuterol 2.5 mg/3 mL Neb INHALATION (14:21)
--- NOTE | 2024-02-18 14:32 | P.OP_ITS ---
Operative Report Date of procedure: February 18, 2024 Pre-op diagnosis: Lumbar stenosis with neurogenic claudication Post-op diagnosis: same Procedure done: 1. L3-4 laminectomy and partial facetectomies 2. L4-5 laminectomy with partial facetectomies 3. L5-S1 laminectomy and partial facetectomies Surgeon: Mati Leal DO Estimated blood loss (mL): 100 Procedure: 1. L3-4 laminectomy and partial facetectomies 2. L4-5 laminectomy with partial facetectomies 3. L5-S1 laminectomy and partial facetectomies Please read the op suite after going anesthesia placed in the prone position. All areas impingement well-padded. Patient's prepped draped normal sterile fashion. Skin incision made from L3 down to S1. Thoracolumbar fascia was split subperiosteal dissection was made out to the capsules of the L3-4 L4-5 and L5-S1 disc bases. Over the facet capsules. Attention was brought to the L5-S1 level. The interspace between L5-S1 was identified. High-speed bur was used to take down the laminectomy as well as medial aspect facet joints. The ligamentum flavum was taken down from L5-S1. The Kerrison rongeur was used to take down the remaining lamina as well as medial aspect of facet joints. Dura was identified the S1 nerve transfer on the S1 pedicles the L5 nerve was traced out the L5-S1 foramen. Attention was brought to the L4-5 space again the high-speed bur was used to take down the lamina along with the Kerrison. The medial aspect of facet joints were taken down. The ligamentum flavum was taken down from L4-L5. The L5 nerve was traced around the L5 pedicle. The L4 nerve traced out the L4-5 foramen these all felt to be adequate decompressed dura was decompressed. Dura was in good repair about the L4-5 and L5-S1 level. Next attention was brought to the L3-4 level. This was done by using the high- speed bur to take down the lamina as well as take down the medial aspect of the facet joints bilaterally. The implant was taken down from L3-L4. The medial aspect of facet joints and remaining lamina were taken down with the Kerrison rongeur. The L3 nerve was traced out the L3-4 foramen. The L4 nerve was traced around the elbow for pedicle. Wounds were irrigated and closed in layered fashion with 0 Vicryl 2-0 Vicryl and Monocryl suture. Sterile dressings were applied drain was placed vancomycin powder was placed patient was transferred to the PACU in stable condition.
--- NOTE | 2024-02-18 14:35 | ANE.PACU2 ---
Inpatient post-anesthesia follow up: Airway intact: Yes Vital signs: Temperature 98.4 F Pulse Rate 74 Respiratory Rate 16 Blood Pressure 120/65 Pulse Oximetry 96 Oxygen Delivery Me thod Room Air Oxygen Flow Rate Fraction of Inspir ed Oxygen Hydration adequate: Yes Nausea and vomiting: No Pain level: 1 Mental status: Baseline
--- NOTE | 2024-02-18 14:54 | XR_ITS ---
WS: [id number] XR lumbar spine 2-3V* [id number] REASON FOR EXAM: WAI PICS FINDINGS: Surgical probe overlies the disc space at L3-L4 and on a subsequent image L5-S1. XR/XR lumbar spine 2-3V* [id number] IMPRESSION: Lumbar level localization and surgery as above.
[2024-02-18] MEDS: gabapentin 300 mg Capsule 600 MG PO ×2 (15:47→19:58)
[2024-02-18] MEDS: lactated ringers 1,000 ML 90 ML IV (15:47)
[2024-02-18] MEDS: HYDROcodone-acetaminophen 5-325 mg Tablet PO (16:08)
[2024-02-18] MEDS: isosorbide mononitrate ER 30 mg Tablet PO (18:47)
[2024-02-18] MEDS: carvedilol 12.5 mg Tablet PO (18:47)
[2024-02-18] MEDS: docusate sodium 100 mg Capsule PO (18:47)
[2024-02-18] MEDS: pantoprazole DR 40 mg Tablet PO (18:47)
[2024-02-18] MEDS: atorvastatin 40 mg Tablet 20 MG PO (18:48)
[2024-02-18] MEDS: morphine 4 mg/mL SDV 1 mL 2 MG IVP (19:59)
[2024-02-19 00:44] VITALS: BP 121/68; PULSE 73; RESP 17; TEMP 37; O2SAT 96
[2024-02-19] MEDS: lactated ringers 1,000 ML 90 ML IV (03:27)
[2024-02-19] MEDS: ceFAZolin 2,000 MG in sodium chloride 0.9% (plus) 50 ML 100 MG IV (03:31)
[2024-02-19] MEDS: HYDROcodone-acetaminophen 5-325 mg Tablet PO ×2 (03:33→08:10)
[2024-02-19 05:04] VITALS: BP 120/60; PULSE 75; RESP 16; TEMP 37; O2SAT 95
[2024-02-19] MEDS: lisinopril 20 mg Tablet PO (06:10)
[2024-02-19] MEDS: hydroCHLOROthiazide 25 mg Tablet 12.5 MG PO (06:10)
[2024-02-19 07:54] VITALS: BP 123/66; PULSE 69; RESP 16; TEMP 36.9; O2SAT 96
[2024-02-19] MEDS: pantoprazole DR 40 mg Tablet PO (08:09)
[2024-02-19] MEDS: amlodipine 10 mg Tablet PO (08:09)
[2024-02-19] MEDS: docusate sodium 100 mg Capsule PO (08:09)
[2024-02-19] MEDS: carvedilol 12.5 mg Tablet PO (08:09)
[2024-02-19] MEDS: gabapentin 300 mg Capsule 600 MG PO (08:09)
[2024-02-19] MEDS: isosorbide mononitrate ER 30 mg Tablet PO (08:09)
--- NOTE | 2024-02-19 08:10 | PM.DCS ---
Discharge Providers Date of Admission: 02/18/24 13:50 Date of Discharge: February 19, 2024 Attending Provider at Admission: Mati Leal DO Attending Provider at Discharge: Mati Leal DO Primary Care Provider: Mo Alvarado MD Reason for Visit Reason for Visit: M48.062 Physical Exam Narrative: Patient doing well sitting up in bed eating breakfast pain controlled. Urinary Catheter Management: Hussein: Cath Placed During This Visit: yes Urinary Catheter Date of Insertion: 02/18/24 Urinary Catheter Time of Insertion: 12:20 Discharge Data Studies Completed and Pending Completed Studies During Hospitalization Category Date Time Status XR lumbar spine 2-3V* [id number] Routine Exams 02/18/24 14:54 Completed Radiology Impressions Lumbar Spine X-Ray 02/18/24 14:54 IMPRESSION: Lumbar level localization and surgery as above. Laboratory Results Sodium 134 mmol/L (136-145) L 02/18/24 09:30 Potassium 4.4 mmol/L (3.5-5.1) 02/18/24 09:30 Chloride 99 mmol/L (98-107) 02/18/24 09:30 Carbon Dioxide 23 mmol/L (22-29) 02/18/24 09:30 Anion Gap 16.4 (5-19) 02/18/24 09:30 BUN 9 mg/dL (8-23) 02/18/24 09:30 Creatinine 0.9 mg/dL (0.7-1.2) 02/18/24 09:30 GFR Calculation 84.2 mL/min (90-130) L 02/18/24 09:30 Glucose 96 mg/dL (65-115) 02/18/24 09:30 Calculated Osmolality 277 mOsm/kg (285-295) L 02/18/24 09:30 Calcium 9.8 mg/dL (8.5-10.5) 02/18/24 09:30 Vitals Last Vital Signs Temp 98.4 F 02/19/24 07:54 Pulse 69 02/19/24 07:54 Resp 16 02/19/24 07:54 BP 123/66 02/19/24 07:54 Pulse Ox 96 02/19/24 07:54 O2 Del Method Room Air 02/19/24 07:54 Discharge Plan Discharge Patient Disposition: Home Condition: Stable Prescriptions: New hydrocodone-acetaminophen 5-325 mg tablet 1 - 2 tab PO .Q4-6H Qty: 40 0RF Continued pravastatin 40 mg tablet 20 mg PO DAILY@1830 aspirin 81 mg tablet,delayed release (DR/EC) 81 mg PO DAILY 90 Days Qty: 90 0RF amlodipine 10 mg tablet 10 mg PO DAILY meloxicam 7.5 mg tablet 7.5 mg PO DAILY nitroglycerin 0.3 mg tablet, sublingual 0.3 mg sublingual Q5M PRN (Reason: as needed for chest pain) Qty: 30 3RF Rx Instructions: do not exceed 3 doses per episode. carvedilol 12.5 mg tablet 12.5 mg PO BID Qty: 180 3RF gabapentin 600 mg tablet 600 mg PO TID Qty: 90 0RF benazepril-hydrochlorothiazide 20-12.5 mg tablet 1 tab PO DAILY@0630 pantoprazole 40 mg tablet,delayed release (DR/EC) 40 mg PO BID Qty: 60 0RF isosorbide mononitrate 30 mg tablet extended release 24 hr 30 mg PO BID Qty: 60 6RF Discharge Orders: Discharge Order (Routine); Ordered 02/19/24 Ordered By: Mati Leal Discharge Diet: Advance as tolerated Discharge Activity: Limit activity as instructed Patient Instructions: Opioid Safety Activity Restrictions/Additional Instructions: Thank you for [facility] for your care! The following is a list of instructions, from your provider, to follow upon your discharge to ensure you have the optimal recovery from your recent injury orsurgery. Follow-up care is a marshall part of your treatment and safety. Be sure to make and go to all appointments, and call your doctor if you are having problems. If you do not already have a follow-up appointment made, call Dr. Leal office in the next 1-3 days to make follow up appointment for 2 weeks at [phone]. It is also a good idea to know your test results and keep a list of the medicines you take. Medications will be prescribed for you at your provider's discretion. These medications are to be used as instructed; if they are taken more often that prescribed they will not be refilled early and in most cases will not be refilled at all. > When a refill is needed,you should contact malcolm jean 2-3 business days before your prescription runs out. Medications will NOT be refilled by workers compensation defense attorney providers after hours! > Many pain medications contain Tylenol (Acetaminophen). Do not consume more than 4,000 mg of Tylenol per day in total with any combination ofmedications. > Pain medications can cause constipation. Please use an over the counter stool softener as directed, while taking pain medications. Consulty our local pharmacist with questions or recommendations on stool softeners. If constipation persists, contact our office or your primary care provider. > While under our care,you are not to receive pain medications or other controlled substances from any other provider unless our office is notified and approves. Any attempts to do so will result in refusal to prescribe any further pain medications and possible dismissal from our practice. ? Your wound and/or dressing should remain clean and dry for 2 days after surgery. On postoperative day 2 (48 hours after your surgery) the dressing (if present) should be removed and it is okay to shower and get the incision wet. Pad dry afterwards. No further dressing should be required from that point on. Do not put any creams or ointments on theincision > It is normal for there to be a small amount of discharge (bloody or blood tinged) present from a surgical wound for the first 1-3days. > The wound should be examined twice a day for signs of infection. Mild redness or bruising is to be expected but indications that an infection maybe starting would include; An increase in redness, swelling, or discharge, a foul odor present around the incision, and/or a fever greater than 101 ?F ? Showering is permitted, however we ask that you do not take a bath, sit in a whirlpool / Jacuzzi, or go swimming for 1 month. For only the first 2 days after surgery, lt wilt be necessary for you to cover your wound/dressing with plastic and tape to keep it dry. ? Walking is essential for the healing process after surgery. We would like you to slowly advance your walking. This should be done on relatively flat clear ground (inside or out) or can be done on a treadmill. Remember this goal does not have to happen all at once, slowly increase your distance and duration. This can be broken into more more than one walk per day as tolerated. Patients who walk as directed after surgery rarely require Physical Therapy. In the unlikely event this issue arises your provider will direct hospital staff to make the appropriate arrangements. ? No lifting over 5 pounds {a gallon of milk) or bending/twisting until further notice. Each of these activities places an unnecessary amount of stress onto the body and can impede the delicate healing process. > Instead of bending at the waist, keep your back straight and bend at the knees. > Instead of twisting your torso, keep your back straight and turn your entire body with your feet. ? You may sleep in any position which makes you comfortable. Many patients find comfort sleeping in a reclining chair. It is not abnormal to have difficulty sleeping for the first several weeks following your surgery. We recommend trying Benadry! or Tylenol PM as directed to help with your sleeping difficulties. Both medications are over the counter and available withoutprescription. ? NO SMOKING!!! Smoking dramatically increases the probability of developing postoperative wound infections. ? Common complaints after lumbar and/or thoracic spine surgery include, but are not limited to: numbness and/or tingling in the legs, pain around the incision and surrounding tissues, muscle spasms, or stiffness of the middle to low back. Contact our office if these symptoms persist or if an acute change occurs. ? No driving for the first 3-5days, and not while taking narcotics [] until seen at your follow-up appointment and cleared. There are no restrictions for riding on short trips, however if you take a longer trip, arrangements should be made to make regular stops to get out of the vehicle and stretch . ? Swelling is an unfortunate event that will take place with any surgery and is the primary source of your postoperative discomfort. While walking and regular approved activities helps control inflammation, there are additional steps you can take to minimizeswelling. > Place ice over the surgical site and surrounding tissue for twenty minutes, followed by applying a low/medium heat (heating pad) for an additional twenty minutes every 1-2 hours as needed for painrelief. > You may use of over the counter anti-inflammatory medications (Ibuprofen, Motrin, Aleve, Advil, etc) as directed on the package label. These types of medicines wm significantly reduce the amount of discomfort you experience after surgery from swelling. It should be noted that if you have and allergy to any of these medications, or a history of ulcers or kidney disease you should consult you primary care provider prior to starting these medications. Discharge Attestations Time Spent in Discharge Care*: less than 30 min Quality Metrics Clinical Quality Measures [ No reported AMI, CVA or VTE this stay] Coding Level of Care Code Acute Code for Chg Fwd
[2024-02-19 08:16] VITALS: BP 120/65; PULSE 74
[2024-02-19 09:20] VITALS: BP 120/65; PULSE 74
--- NOTE | 2024-02-19 12:01 | PC.SOCIAL ---
Walker Order Patient has walker order. Patient has been discharged @ this time. CM called and left message w/ patient to see if he will need walker. Information sent to HOME @ this time.
--- NOTE | 2024-02-19 12:10 | PC.SOCIAL ---
Pre-Cert [employer] Access Pre-Cert Confirmation# [id number].
== END 2024-02-19 09:22 | disposition home or self-care (01) ==
LOC: MEDSURG 13:52
PROVIDERS: Anesthesiology; Admitting Provider Orthopaedic Surgery; PCP Family Medicine; Visit Provider Orthopaedic Surgery
PROC: (CPT 63005; principal; 2024-02-18 09:35)
DX: M48.062 Spinal stenosis, lumbar region with neurogenic claudication (principal); I10 Essential (primary) hypertension; K21.9 Gastro-esophageal reflux disease without esophagitis; E78.5 Hyperlipidemia, unspecified; F17.210 Nicotine dependence, cigarettes, uncomplicated
CPT/HCPCS: 63047; 63048 ×2; 36415; 51702; 72100; 76000; 80048; 97116; 97161; G0378; J0690; J1100; J2270; J2405; J2704; J3010; J3370; J3490; J7030; J7120; J7613

== ENCOUNTER → 2024-02-20 09:12 | Outpatient (BNVA) | payer MEDICARE, MEDICAID, SELFPAY | PROVIDERS: PCP Family Medicine; Visit Provider Anesthesiology Pain Medicine | DX: M48.062 Spinal stenosis, lumbar region with neurogenic claudication (principal); M50.30 Other cervical disc degeneration, unspecified cervical region; M51.16 Intervertebral disc disorders with radiculopathy, lumbar region; M43.16 Spondylolisthesis, lumbar region | CPT/HCPCS: 99214 ==

== ENCOUNTER → 2024-03-04 14:21 | Outpatient (BNVA) | payer MEDICARE, MEDICAID, SELFPAY | PROVIDERS: PCP Family Medicine; Visit Provider Orthopaedic Surgery | DX: Z98.890 Other specified postprocedural states (principal) | CPT/HCPCS: 99024 ==

== ENCOUNTER 2024-03-11 16:30 | Outpatient (CLI) | payer MEDICARE, MEDICAID, SELFPAY ==
--- NOTE | 2024-03-11 16:42 | CT_ITS ---
WS: [id number] LDCT LUNG CANCER SCREENING HISTORY: NICOTINE DEPENDENCE, CIGARETTES TECHNIQUE: Axial imaging performed from the apices to 1 cm below the costophrenic angles. Coronal and sagittal reformats are submitted with axial MIP series. All CT scans at [facility] use at least one of these dose optimization techniques: automated exposure control; mA and/or kV adjustment per patient size (includes targeted exams where dose is matched to clinical indication); or iterativ e reconstruction. DLP: 76.11 mGy.cm DIvol: Mean CTDIvol: 1.60 (mGy) COMPARISON: 12/20/2022 Diagnostic quality: Satisfactory Lungs: Moderate pulmonary hyperexpansion from emphysema. Bilateral 3 mm nodules at the lung bases. St able since the prior study. The RIGHT lower lobe nodule is subpleural. Bilateral apical thickening an d fibrosis is unchanged. No new pulmonary nodule or mass. No pneumonia. No endobronchial lesions. Heart: Normal size heart with no pericardial effusion.. Mild coronary artery calcification. Other findings: Atherosclerosis aorta. No adenopathy. Normal size pulmonary artery. No adrenal mass. Mild anterior wedging of T2, T3, T4, T11. Similar to the prior exam. No destructive bone lesions. Deg enerative air in the LEFT glenohumeral joint. CT/CT lung screening [id number] IMPRESSION: LUNG-RADS: 2-Benign Appearance or Behavior FOLLOW UP: 12 Month: Continue annual screening with LDCT OTHER FINDINGS (S MODIFIER): None.
== END 2024-03-11 16:31 | disposition home or self-care (01) ==
LOC: RAD 16:31
PROVIDERS: PCP Family Medicine; Visit Provider Family Medicine
DX: Z12.2 Encounter for screening for malignant neoplasm of respiratory organs (principal); R91.8 Other nonspecific abnormal finding of lung field; J98.4 Other disorders of lung; M48.54XA Collapsed vertebra, not elsewhere classified, thoracic region, initial encounter for fracture; F17.210 Nicotine dependence, cigarettes, uncomplicated
CPT/HCPCS: 71271

== ENCOUNTER → 2024-05-13 10:23 | Outpatient (BNVA) | payer MEDICARE, MEDICAID, SELFPAY | PROVIDERS: PCP Family Medicine; Visit Provider Orthopaedic Surgery | DX: Z98.890 Other specified postprocedural states (principal) | CPT/HCPCS: 99024 ==

== ENCOUNTER 2024-06-02 09:07 | Outpatient (CLI) | payer MEDICARE, MEDICAID, SELFPAY ==
--- NOTE | 2024-06-02 09:17 | XRR_ITS ---
PROCEDURE INFORMATION: Exam: XR Right Hip Exam date and time: 06/02/2024 9:23 AM Age: 68 years old Clinical indication: Hip pain; Right hip; Additional info: Right hip joint pain TECHNIQUE: Imaging protocol: Radiologic exam of the right hip. Views: 1 view hip with pelvis when performed. COMPARISON: CR XR lumbar spine min 4V [id number] 09/18/2023 10:39 AM FINDINGS: Bones/joints: No acute fracture or dislocation. Mild joint space narrowing. Degenerative changes at the lumbosacral junction. Soft tissues: Vascular calcifications. XR/XR hip RT 2-3V wo/w pel* [id number] IMPRESSION: 1. No acute fracture or dislocation. 2. Mild arthrosis as above.
--- NOTE | 2024-06-02 09:17 | XRR_ITS ---
PROCEDURE INFORMATION: Exam: XR Left Knee Exam date and time: 06/02/2024 9:23 AM Age: 68 years old Clinical indication: Pain; Knee; Bilateral; Additional info: Knee joint pain TECHNIQUE: Imaging protocol: Radiologic exam of the left knee. Views: 3 views. COMPARISON: No relevant prior studies available. FINDINGS: Bones/joints: No acute fracture or dislocation. Joint spaces are preserved. Soft tissues: Vascular calcifications. XR/XR knee LT 3V* [id number] IMPRESSION: No acute fracture or dislocation.
--- NOTE | 2024-06-02 09:17 | XRR_ITS ---
PROCEDURE INFORMATION: Exam: XR Right Knee Exam date and time: 06/02/2024 9:23 AM Age: 68 years old Clinical indication: Pain; Knee; Bilateral; Additional info: Knee joint pain TECHNIQUE: Imaging protocol: Radiologic exam of the right knee. Views: 3 views. COMPARISON: No relevant prior studies available. FINDINGS: Bones/joints: No acute fracture or dislocation. Joint spaces are preserved. Soft tissues: Vascular calcifications. XR/XR knee RT 3V* [id number] IMPRESSION: No acute fracture or dislocation.
== END 2024-06-02 09:08 | disposition home or self-care (01) ==
LOC: RAD 09:11
PROVIDERS: PCP Family Medicine; Visit Provider Family Medicine
DX: M51.37 Other intervertebral disc degeneration, lumbosacral region (principal); M61.462 Other calcification of muscle, left lower leg; M61.459 Other calcification of muscle, unspecified thigh; M25.569 Pain in unspecified knee; M25.551 Pain in right hip
CPT/HCPCS: 73502; 73562

== ENCOUNTER → 2024-07-10 13:59 | Outpatient (BNVA) | payer MEDICARE, MEDICAID, SELFPAY | PROVIDERS: PCP Family Medicine; Visit Provider Internal Medicine Cardiovascular Disease | DX: R07.89 Other chest pain (principal); I10 Essential (primary) hypertension; F17.210 Nicotine dependence, cigarettes, uncomplicated | CPT/HCPCS: 99213 ==

== ENCOUNTER → 2024-08-21 09:34 | Outpatient (BNVA) | payer MEDICARE, MEDICAID, SELFPAY | PROVIDERS: PCP Family Medicine; Visit Provider Orthopaedic Surgery | DX: Z98.890 Other specified postprocedural states (principal) | CPT/HCPCS: 99213 ==

== ENCOUNTER 2024-08-28 15:01 | Outpatient (CLI) | payer MEDICARE, MEDICAID, SELFPAY ==
--- NOTE | 2024-08-28 15:15 | MR_ITS ---
WS: [id number] MRI LUMBAR SPINE NONCONTRAST TECHNIQUE: Sagittal T1, T2 and STIR imaging. Axial T1 and T2 imaging. CLINICAL INFORMATION: M48.062 - Spinal stenosis, lumbar region with neurogenic ... COMPARISON: MRI 10/17/2023 FINDINGS: Mild lumbar curve. No acute compression. Grade 1 anterolisthesis L5 on S1 with chronic spondylolysis. Laminectomy defects L3-L5 L1-L2: Mild disc bulging with central protrusion. Mild central canal stenosis. Moderate facet arthrop athy. Mild bilateral foraminal narrowing. L2-L3: Mild annular bulging. Moderate facet arthropathy. Mild LEFT and no significant RIGHT foraminal narrowing. L3-L4: Shallow central protrusion with narrowing of the subarticular recess bilaterally. Spinal canal narrowing has been decompressed. Mild residual narrowing of the thecal sac. Moderate facet arthropat hy. New disc material in the LEFT subarticular recess and proximal foramen with severe LEFT foraminal narrowing. Impingement on the exiting LEFT L3 nerve root. This is best appreciated on the sagittal i maging. Moderate RIGHT foraminal narrowing. L4-L5: Decompressive laminectomy defects. Moderate facet arthropathy. Moderate to severe bilateral fo raminal narrowing appears progressed with progressed disc desiccation and loss of disc base height. L5-S1: Grade 1 anterolisthesis with spondylolysis. Moderate to severe LEFT greater than RIGHT bony fo raminal narrowing similar to previous. Slight grade 1 anterolisthesis. Shallow central protrusion T10-11. Visualized pelvic bony structures: Normal. Paravertebral soft tissues: Normal. Moderate central canal stenosis in the cervical spine is seen on the mattress filler imaging at C3-C6. This can be further evaluated with cervical spine MRI. MR/MR lumbar spine wo con* [id number] IMPRESSION: 1. Spinal canal has been been decompressed compared to previous with L3-L5 kumar inectomies. 2. New disc extrusion in the LEFT L3-4 subarticular recess with severe foramin al narrowing and impingement on the exiting LEFT L3 nerve root. 3. Progressed severe bilateral foraminal narrowing L4-5 worse on the RIGHT wit h progressive loss of disc space height at this level. 4. Mild central canal stenosis L1-2 appears stable. 5. Stable grade 1 anterolisthesis L5 on S1 with chronic spondylolysis. Severe LEFT and moderate RIGHT bony foraminal narrowing similar to previous.
== END 2024-08-28 15:02 | disposition home or self-care (01) ==
PROVIDERS: PCP Family Medicine; Visit Provider Orthopaedic Surgery
DX: M48.062 Spinal stenosis, lumbar region with neurogenic claudication (principal); M51.16 Intervertebral disc disorders with radiculopathy, lumbar region; M43.16 Spondylolisthesis, lumbar region; M47.896 Other spondylosis, lumbar region; M51.26 Other intervertebral disc displacement, lumbar region; M99.63 Osseous and subluxation stenosis of intervertebral foramina of lumbar region; M99.64 Osseous and subluxation stenosis of intervertebral foramina of sacral region; M51.24 Other intervertebral disc displacement, thoracic region
CPT/HCPCS: 72148

== ENCOUNTER 2024-10-01 13:11 | Outpatient (CLI) | payer MEDICARE, MEDICAID, SELFPAY ==
[2024-10-01 13:28] VITALS: PULSE 68; RESP 18; O2SAT 97
[2024-10-01] MEDS: albuterol 2.5 mg/3 mL Neb INHALATION (13:28)
[2024-10-01 13:32] VITALS: PULSE 65
== END 2024-10-01 13:12 | disposition home or self-care (01) ==
PROVIDERS: PCP Family Medicine; Visit Provider Family Medicine
DX: R06.2 Wheezing (principal); Z71.6 Tobacco abuse counseling
CPT/HCPCS: 94060; 94726; 94729; J7613

== ENCOUNTER → 2024-10-14 12:55 | Outpatient (BNVA) | payer MEDICARE, MEDICAID, SELFPAY | PROVIDERS: PCP Family Medicine; Visit Provider Orthopaedic Surgery | DX: Z01.818 Encounter for other preprocedural examination (principal); M48.062 Spinal stenosis, lumbar region with neurogenic claudication | CPT/HCPCS: 36415; 80053; 81001; 85025; 99214 ==

== ENCOUNTER 2024-11-26 05:45 | Day surgery (SDC) | payer MEDICARE, MEDICAID, SELFPAY ==
[2024-11-26] VITALS (15 sets, daily range): BP systolic 106–157; BP diastolic 60–81; PULSE 62–74; RESP 14–18; TEMP 36.1–36.9; O2SAT 93–100; BMI 27.3
--- NOTE | 2024-11-26 | XR_ITS ---
WS: [id number] Lumbar spine, C-arm fluoroscopy views, 11/26/2024 Clinical Data: Bilateral L3-4 revision laminectomy and partial facetectomie Comparison: Lumbar spine, 09/18/2023 Findings: Dr. Leal performed a lumbar decompression. XR/XR lumbar spine 2-3V* [id number] Impression: Lumbar decompression.
[2024-11-26] MEDS: sodium chloride 0.9% 1,000 ML 30 ML IV (06:10)
--- NOTE | 2024-11-26 06:27 | W.PM.OPSFHP ---
Same Day Surgery H&P Indication for Procedure/HPI DATE OF PROCEDURE: November 26, 2024 CHIEF COMPLAINT/INDICATIONFOR SURGICAL PROCEDURE: Back and leg pain PREOP DIAGNOSIS: Lumbar stenosis with neurogenic claudication PLANNED PROCEDURE: Operation Date: 11/26/24 07:00 Proposed Procedures p Lumbar Decompression(Not Applicable) - Mati Leal DO Medications/Allergies* Home Medications ?Medication ?Instructions ?Recorded ?Confirmed ?Type benazepril 20 1 tab PO DAILY@182901/31/21 11/25/24 History mg-hydrochlorothiazide 12.5 mg tablet amlodipine 10 mg tablet 10 mg PO DAILY 03/05/23 11/25/24 History meloxicam 7.5 mg tablet 7.5 mg PO DAILY 03/05/23 11/25/24 History pravastatin 40 mg tablet 20 mg PO DAILY@182907/02/23 11/25/24 History gabapentin 600 mg tablet 600 mg PO BID 07/10/24 11/25/24 History carvedilol 12.5 mg tablet 12.5 mg PO DAILY 11/25/24 11/25/24 History Allergies/Adverse Reactions Allergy/AdvReac Type Severity Reaction Status Date / Time No Known Allergies Allergy Verified 10/14/24 13:14 Current Medications: Generic Name Dose Route Start Last Admin Trade Name Freq PRN Reason Stop Dose Admin Sodium Chloride 1,000 mls @ 30 mls/hr 11/26/24 06:00 11/26/24 06:10 Sodium Chloride 0.9% IV 11/27/24 05:59 30 mls/hr .Q24H CARL Administration Pertinent History/Comorbid Conditions* Medical History GERD (gastroesophageal reflux disease) Encounter for long-term opiate analgesic use Opioid contract exists Back pain with radiation Facet arthritis of lumbar region Degenerative disc disease, cervical Long-term use of high-risk medication Smoker Surgical History (Updated 03/04/24 @ 14:41 by Mati Leal DO) History of colonoscopy with polypectomy 2016 S/P appendectomy S/P cataract extraction RIGHT EYE DR SARMIENTO Status post lens implant LEFT EYE Family History (Updated 09/05/22 @ 09:59 by Reta Mann RN) Diabetes Brother Heart disease Myocardial infarction Mother Sister Hypertension Mother Sister Father Brother Stroke Family/Other Social History Smoking and tobacco/nicotine status: unknown if used tobacco/nicotine Alcohol intake: former Former alcohol use details: Quit 10 years ago Substance/Drug Use: never Adopted: No Caregiver/support person: No Lives independently: Yes service: No Current occupational status: disabled Sexually active: Yes Do you think of yourself as: Straight/Heterosexual Current gender identity: Male Pertinent Exam Findings alert, oriented x 3 and procedure specific exam findings Recommendations Surgery/Procedure today Coding Level of Care Code Acute Code for [facility]
--- NOTE | 2024-11-26 06:41 | ANES.PREANE2 ---
Pre-Anesthetic Assessment Height/Weight: Height 1.73 m Weight 81.647 kg Temp Pulse Resp BP Pulse Ox O2 Del Method 98.4 F 72 18 157/80 97 Room Air 11/26/24 05:59 11/26/24 05:59 11/26/24 05:59 11/26/24 05:59 11/26/24 05:59 11/26/24 06:03 Preop Diagnosis: Lumbar stenosis with neurogenic claudication Operation Date: 11/26/24 07:00 Proposed Procedures p Lumbar Decompression(Not Applicable) - Mati Leal, DO Familial anesthetic complications: None Was Beta Claire taken within 24 hours: Yes Was Clonidine taken within 24 hours: N/A Last intake: Intake Last Liquid Date 11/25/24 Last Liquid Time 20:30 Last Solid Date 11/25/24 Last Solid Time 18:30 Social Tobacco and No alcohol Exam alert, oriented x 3, clear to auscultation bilaterally and regular rate & rhythm Airway Mallampati: Class II Dentition: full Pulmonary Chronic Obstructive Pulmonary Disease CV/HEM Stable Angina (atypical - negative stress test, normal echo, clear cath) and Hypertension GI Gastroesophageal Reflux Disease Metabolic Hyperlipidemia Anesthetic Plan ASA status: 3 Anesthesia: General Risk of > 500 ml blood loss (7ml/kg in children): No Medications/Allergies Home Medications ?Medication ?Instructions ?Recorded ?Confirmed ?Last Taken ?Type benazepril 20 1 tab PO DAILY@1830 01/31/21 11/25/24 11/25/24 History mg-hydrochlorothiazide 12.5 mg tablet aspirin 81 mg tablet,delayed 81 mg PO DAILY 90 days #90 tabs 08/31/22 11/25/24 11/25/24 Rx release pantoprazole 40 mg tablet,delayed 40 mg PO BID #60 tabs 11/21/22 11/25/24 11/26/24 Rx release amlodipine 10 mg tablet 10 mg PO DAILY 03/05/23 11/25/24 11/26/24 History meloxicam 7.5 mg tablet 7.5 mg PO DAILY 03/05/23 11/25/24 11/25/24 History nitroglycerin 0.3 mg sublingual 0.3 mg sublingual Q5M PRN as 03/05/23 11/25/24 08/27/24 Rx tablet needed for chest pain #30 tabs isosorbide mononitrate 30 mg 30 mg PO BID #60 tabs 04/16/23 11/25/24 11/25/24 Rx tablet,extended release 24 hr pravastatin 40 mg tablet 20 mg PO DAILY@1830 07/02/23 11/25/24 11/25/24 History gabapentin 600 mg tablet 600 mg PO BID 07/10/24 11/25/24 11/25/24 History prednisone 20 mg tablet 20 mg PO DAILY 7 days #15 tabs 08/21/24 11/25/24 11/25/24 Rx carvedilol 12.5 mg tablet 12.5 mg PO DAILY 11/25/24 11/25/24 11/26/24 History Allergies Allergy/AdvReac Type Severity Reaction Status Date / Time No Known Allergies Allergy Verified 10/14/24 13:14 Current Medications Generic Name Dose Route Start Last Admin Trade Name Freq PRN Reason Stop Dose Admin Sodium Chloride 1,000 mls @ 30 mls/hr 11/26/24 06:00 11/26/24 06:10 Sodium Chloride 0.9% IV 11/27/24 05:59 30 mls/hr .Q24H CARL Administration PFSH Anesthesia Medical History GERD (gastroesophageal reflux disease) Encounter for long-term opiate analgesic use Opioid contract exists Back pain with radiation Facet arthritis of lumbar region Degenerative disc disease, cervical Long-term use of high-risk medication Smoker Surgical History (Updated 07/10/24 @ 14:41 by Yolie Weber LPN) History of colonoscopy with polypectomy 2016 S/P appendectomy S/P cataract extraction RIGHT EYE DR SARMIENTO Status post lens implant LEFT EYE Family History Mother Myocardial infarction Hypertension Sister Myocardial infarction Hypertension Family/Other Stroke Father Hypertension Brother Hypertension Diabetes Other Heart disease Social History Smoking and tobacco/nicotine status: unknown if used tobacco/nicotine Alcohol intake: former Former alcohol use details: Quit 10 years ago Substance/Drug Use: never Adopted: No Caregiver/support person: No Lives independently: Yes service: No Current occupational status: disabled Sexually active: Yes Do you think of yourself as: Straight/Heterosexual Current gender identity: Male Data Anesthesia Cardiac Studies: Sestamibi Stress Test (Cardiology) 10/24/22
[2024-11-26] MEDS: albuterol 2.5 mg/3 mL Neb INHALATION (06:47)
[2024-11-26] MEDS: ceFAZolin 2,000 mg SDV 2000 MG IVP (06:59)
[2024-11-26] MEDS: lidocaine-epi 1% 20 mL INJ 10 ML INJECTION (07:37)
--- NOTE | 2024-11-26 09:00 | PM.OP ---
Operative Report Date of procedure: November 26, 2024 Pre-op diagnosis: Lumbar stenosis with neurogenic claudication Post-op diagnosis: same Procedure done: Bilateral L3-4 revision laminectomy and partial facetectomies Surgeon: Mati Leal DO Estimated blood loss (mL): 15 Complications: Dural tear right side L3-4 Procedure: Bilateral L3-4 revision laminectomy and partial facetectomies Patient is brought to the operative suite. After undergoing anesthesia they are placed in the prone position. All areas of impingement are well padded. Patient is then prepped and draped in the normal sterile fashion. A skin incision is made over the L3/4 level. Using top part of previous incision this is confirmed under c-arm guidance. A series of dilators are passed and the tubular retractor is docked on the L3 lamina. A bovie is used to clear the soft tissue off the lamina and the L 3/4 facet joint. A high speed darian is then used to perform the laminectomy and take down the medial aspect of the L L3/4 facet joint. A kerrison rongeure was then used to take down the remaining lamina and smooth the edged of the laminectomy up to the point where the ligamentum flavum attaches. Attention was then brought to the medial aspect of the facet joint. The remaining medial aspect of the superior and inferior aspect of the facet joint were taken down with the kerrison from the pedicle of L3 to L 4. The facet joint had significant hypertrophy. Attention was then brought to the Ligamentum Flavum. The ligament was taken down from the lamina of L3 to L4 and out medially to the remaining facet joint. The ligament was scarred down to the dura. The dura was then exposed. The dura was in good repair. The L3 nerve was then traced with a curette out the L3/4 foramen and found to be adequately decompressed. The L4 nerve was traced with a curette around the L4 pedicle. The lateral recess was opened with a kerrison helping to further decompress the L4 nerve. The tubular retractor was then t removed and then placed in on the right side. The bovie was used to take down the soft tissue on the spinous process. The high speed darian was used to take down the spinous process and then the contralateral lamina of L3/4. The kerrison rongeur was used to take down the remaining lamina to the point where the ligamentum flavum attached and the ligamentum flavum was taken down from L3 to L4. The kerrison rongeur was then used to reach across and take down the medial aspect of the contralateral L3/4 facet joint.The currete was used to trace the contralateral L3 nerve out the L3/4 foramen to make sure it was decompressed adequatesly and the L4 was traced around the L4 pedicle. The lateral recess was opened further with the kerrison to ensure the L4 is adequately decompressed. The ligamentum flavum and facets were scarred to the dura. Will decompressing there was a small tear in the dura was repaired with a Gelfoam DuraGen and DuraSeal. Wound is then irrigated copiously with saline and surgiflo is used to stop any bleeding. The tubular retractor is removed and the wound is closed with vicryl and monocryl suture. Glue is then used to protect the wound. A sterile dressing is then placed. Patient was then placed in the supine position and transferred to the PACU in stable condition.
[2024-11-26] MEDS: fentaNYL 50 mcg/mL INJ 2mL IVP (09:07)
[2024-11-26] MEDS: HYDROcodone-acetaminophen 5-325 mg Tablet 1 TAB PO (10:05)
--- NOTE | 2024-11-26 10:35 | ANE.PACU2 ---
Inpatient post-anesthesia follow up: Airway intact: Yes Vital signs: Temperature 97.2 F Pulse Rate 66 Respiratory Rate 17 Blood Pressure 126/72 Pulse Oximetry 97 Oxygen Delivery Me thod Room Air Oxygen Flow Rate Fraction of Inspir ed Oxygen Hydration adequate: Yes Nausea and vomiting: No Pain level: 1 Mental status: Baseline
== END 2024-11-26 10:37 | disposition home or self-care (01) ==
PROVIDERS: PCP Family Medicine; Visit Provider Orthopaedic Surgery
PROC: (CPT 63005; principal; 2024-11-26 07:00)
DX: M48.062 Spinal stenosis, lumbar region with neurogenic claudication (principal); G97.41 Accidental puncture or laceration of dura during a procedure; J44.9 Chronic obstructive pulmonary disease, unspecified; M47.816 Spondylosis without myelopathy or radiculopathy, lumbar region; K21.9 Gastro-esophageal reflux disease without esophagitis; I10 Essential (primary) hypertension; E78.5 Hyperlipidemia, unspecified; Z79.899 Other long term (current) drug therapy; Z79.82 Long term (current) use of aspirin
CPT/HCPCS: 63047; 63048; 72100; 76000; A6215; C9358; J0131; J0330; J0690; J1100; J2405; J2704; J3010; J3490; J7030; J7613

== ENCOUNTER → 2025-04-09 13:33 | Outpatient (BNVA) | payer MEDICARE, MEDICAID, SELFPAY | PROVIDERS: PCP Family Medicine; Visit Provider Orthopaedic Surgery | DX: Z98.890 Other specified postprocedural states (principal) | CPT/HCPCS: 72100; 99213 ==

== ENCOUNTER 2025-04-14 13:02 | Outpatient (CLI) | payer MEDICARE, MEDICAID, SELFPAY ==
--- NOTE | 2025-04-14 13:30 | CT_ITS ---
WS: [id number] LDCT LUNG CANCER SCREENING TECHNIQUE: Noncontrast CT of the chest with coronal and sagittal reformatted images. CLINICAL INFORMATION: NICOTINE DEPENDANCE, CIGARETTES, UNCOMPLICATED COMPARISON: None. DLP: 77.10 mGy.cm DIvol: Mean CTDIvol: 1.60 (mGy) All CT scans at [facility] use at least one of these dose optimization techniques: automated exposure control; mA and/or kV adjustment per patient size (includes targeted exams where dose is matched to clinical indication); or iterative reconstruction. FINDINGS: A few small subcentimeter nodules in the LEFT lower lobe. Fibrosis in the lung apices. Few calcified granulomas. Subsegmental atelectasis in the lingula. No new suspicious pulmonary parenchymal opacities. Aortic calcification. Coronary calcification. No mediastinal or hilar lymphadenopathy. No axillary lymphadenopathy. Tiny esophageal hiatal hernia. Adrenal glands are normal. Splenic granulomas. Thoracic curve with thoracic kyphosis. Hypertrophic changes thoracic spine. Chronic anterior wedging at T2, T3, T4, and T11 unchanged. CT/CT lung screening [id number] IMPRESSION: LUNG-RADS: 2-Benign Appearance or Behavior FOLLOW UP: 12 Month: Continue annual screening with LDCT
== END 2025-04-14 13:03 | disposition home or self-care (01) ==
PROVIDERS: PCP Family Medicine; Visit Provider Family Medicine
DX: Z12.2 Encounter for screening for malignant neoplasm of respiratory organs (principal); F17.210 Nicotine dependence, cigarettes, uncomplicated; R91.1 Solitary pulmonary nodule; J84.10 Pulmonary fibrosis, unspecified; J98.11 Atelectasis; I70.0 Atherosclerosis of aorta; I25.84 Coronary atherosclerosis due to calcified coronary lesion; D73.89 Other diseases of spleen; M40.204 Unspecified kyphosis, thoracic region; M47.814 Spondylosis without myelopathy or radiculopathy, thoracic region; M25.78 Osteophyte, vertebrae; S22.030S Wedge compression fracture of third thoracic vertebra, sequela; S22.020S Wedge compression fracture of second thoracic vertebra, sequela; S22.040S Wedge compression fracture of fourth thoracic vertebra, sequela; X58.XXXS Exposure to other specified factors, sequela
CPT/HCPCS: 71271

== ENCOUNTER → 2025-04-16 10:10 | Outpatient (CLI) | payer MEDICARE, MEDICAID, SELFPAY ==
--- NOTE | 2025-04-16 10:15 | MR_ITS ---
WS: [id number] MRI LUMBAR SPINE NONCONTRAST HISTORY: back pain, recent lumbar spine surgery. COMPARISON: 08/28/2024 TECHNIQUE: Sagittal and axial multisequence imaging is submitted. C5 anterolisthesis by 5 mm. Mild anterior wedging of several thoracic vertebral bodies. No high-grade compression fractures or cord compression. L5 anterolisthesis by 7 mm. Advanced degenerative disc disease, most significant at L4-5 and L5-S1. Progression of mild marrow edema in L3, L4 and L5 vertebral bodies. No fractures. Conus terminates normally at L1. Shallow central disc protrusion at T10-11, unchanged. L1-L2: Mild annular disc bulge with a shallow central disc protrusion. Mild central stenosis and foraminal stenosis. L2-L3: Mild annular disc bulging and facet arthritis. Mild bilateral foraminal stenosis. L3-L4: LEFT hemilaminectomy defect. Diffuse annular disc bulging with a central disc protrusion. Additional bilateral disc protrusions into the subarticular recesses, LEFT greater than RIGHT. LEFT subarticular recess protrusion extends cephalad from the disc level into the foramen. This protrusion has progressed since the prior study. Severe facet arthritis. Severe bilateral subarticular recess and foraminal stenosis, greatest on the LEFT. L4-L5: Diffuse osteophytic ridging and disc bulging with bilateral laminectomy defects. There is significant disc contact on the traversing L5 nerve roots. Moderate central with severe bilateral subarticular recess and foraminal stenosis. Disc osteophyte complexes in the foramina. L5-S1: Diffuse disc bulging and osteophytic ridging and moderate facet arthritis. Large laminectomy defect. No central stenosis. Severe LEFT and moderate RIGHT foraminal stenosis have progressed since the prior study from 2023. Paravertebral soft tissues are normal. MR/MR lumbar spine wo con* [id number] IMPRESSION: 1. Posterior lumbar spine decompression from L3-L5 laminectomy defects. 2. Progression of degenerative disc space narrowing and vertebral body edema f rom L3-4 through L5-S1. 3. Grade 1 anterolisthesis L5. 4. L3-4: Severe bilateral subarticular recess and foraminal stenosis, greatest on the LEFT. Large disc protrusion in the LEFT subarticular recess has progres sed since the prior study. Similar to the prior study. 5. L4-5: Moderate central with severe bilateral subarticular recess and forami nal stenosis. 6. L5-S1: Severe LEFT and moderate RIGHT foraminal stenosis. Progressed since the prior study. 7. L1-2: Mild central and foraminal stenosis. 8. Severe facet joint arthropathy from L3-4 through L5-S1. Facet joint cysts a nd fluid in the facet joints.
== END ==
LOC: RAD 10:11
PROVIDERS: PCP Family Medicine; Visit Provider Orthopaedic Surgery
DX: M48.062 Spinal stenosis, lumbar region with neurogenic claudication (principal); Z98.890 Other specified postprocedural states; M54.9 Dorsalgia, unspecified
CPT/HCPCS: 72148

== ENCOUNTER → 2025-04-28 07:56 | Outpatient (BNVA) | payer MEDICARE, MEDICAID, SELFPAY | PROVIDERS: PCP Family Medicine; Visit Provider Orthopaedic Surgery | DX: M48.062 Spinal stenosis, lumbar region with neurogenic claudication (principal); Z09 Encounter for follow-up examination after completed treatment for conditions other than malignant neoplasm; Z01.818 Encounter for other preprocedural examination; M43.16 Spondylolisthesis, lumbar region; M51.16 Intervertebral disc disorders with radiculopathy, lumbar region; M47.816 Spondylosis without myelopathy or radiculopathy, lumbar region | CPT/HCPCS: 36415; 80053; 81001; 85025; 99214 ==

== ENCOUNTER → 2025-05-01 09:08 | Outpatient (BNVA) | payer MEDICARE, MEDICAID, SELFPAY | PROVIDERS: PCP Family Medicine; Visit Provider Family Medicine | DX: Z01.818 Encounter for other preprocedural examination (principal); R00.1 Bradycardia, unspecified | CPT/HCPCS: 93005 ==

== ENCOUNTER 2025-05-20 16:28 | Inpatient (IN) | payer MEDICARE, MEDICAID, SELFPAY ==
--- OUTSIDE RECORDS SUMMARY | 2018-07-22 08:15 | XMS_ITS | Continuity of Care Document ---
Author Organization [facility] Address [address] [place] [address] Phone Care Team Providers Care Manager Intern Name Role Phone Jerrod Junior Unavailable Unavailable Advance Directives Directive Yes / No Effective Date File Name No Information Encounters Encounter Description Practice Location Reason(s) For Visit Diagnoses Date Provider Providers Copied on Encounter [facility], [address] [place] [address], [facility], tel:[phone] *Srinivas Connelly Primary [facility] No Information Vernon Elder. [address] [place] [address], [facility], . tel:[phone] Family History Family Member Type Diagnosis Age At Onset No Information Payers Payer name Insurance type Covered alliance party ID Authoriza tion(s) No Information Social History Type Description Quantity Date Captured Comments Sex Male Smoking Status No Information Chief Complaint And Reason For Visit No Information Reason For Referral Reason For Referral No Information History Of Present Illness Encounter Date Complaint History Of Prese nt Illness No Information Functional Status Date Functional Assessmen t No Information Instructions Date Instruction Additional Infor mation No Information Assessments Type Assessment Date No Information Patient Care Teams Name Effective Dates (start - stop) Status Members No Information
[2025-05-20] VITALS (18 sets, daily range): BP systolic 108–142; BP diastolic 60–104; PULSE 65–75; RESP 10–18; TEMP 36.4–37.2; O2SAT 94–98; BMI 26.6
--- NOTE | 2025-05-20 10:43 | ANES.PREANE2 ---
Pre-Anesthetic Assessment Height/Weight: Height 1.73 m Weight 79.379 kg Temp Pulse Resp BP Pulse Ox O2 Del Method 97.9 F 65 18 142/104 98 Room Air 05/20/25 10:01 05/20/25 10:05/20/25 10:01 05/20/25 10:01 05/20/25 10:05/20/25 10:06 Preop Diagnosis: Lumbar stenosis with neurogenic claudication Operation Date: 05/20/25 11:00 Proposed Procedures p Spinal Fusion PSF(Not Applicable) - Mati Leal DO s Lumbopelvic Fixation(Not Applicable) - Mati Leal DO s Sacroiliac Joint Fusion SI Joint Fusion(Not Applicable) - DO marcellus Miller Lumbar Spine Decompression Lumbar Decompression(Not Applicable) - Mati Leal DO Familial anesthetic complications: None Was Beta Claire taken within 24 hours: Yes Was Clonidine taken within 24 hours: N/A Last intake: Intake Last Liquid Date 05/19/25 Last Liquid Time 22:00 Last Solid Date 05/20/25 Last Solid Time 18:30 Social Tobacco and No alcohol Exam alert, oriented x 3, clear to auscultation bilaterally and regular rate & rhythm Airway Mallampati: Class III Dentition: full CV/HEM Stable Angina and Hypertension GI Gastroesophageal Reflux Disease Anesthetic Plan ASA status: 3 Anesthesia: General Risk of > 500 ml blood loss (7ml/kg in children): No Medications/Allergies Home Medications ?Medication ?Instructions ?Recorded ?Confirmed ?Last Taken ?Type aspirin 81 mg tablet,delayed 81 mg PO DAILY 90 days #90 tabs 08/31/22 05/19/25 11/25/24 Rx release Held on 11/26/24. Instructions: Resume on 11/28/24. pantoprazole 40 mg tablet,delayed 40 mg PO BID #60 tabs 11/21/22 05/19/25 05/19/25 Rx release amlodipine 10 mg tablet 10 mg PO DAILY 03/05/23 05/19/25 05/20/25 History nitroglycerin 0.3 mg sublingual 0.3 mg sublingual Q5M PRN as 03/05/23 05/19/25 08/27/24 Rx tablet needed for chest pain #30 tabs pravastatin 40 mg tablet 20 mg PO DAILY@1830 07/02/23 05/19/25 05/20/25 History carvedilol 12.5 mg tablet 12.5 mg PO QPM 11/25/24 05/19/25 05/20/25 History benazepril 40 mg tablet 40 mg PO QDAY 05/01/25 05/19/25 05/17/25 History gabapentin 600 mg tablet 600 mg PO .qhs 05/01/25 05/19/25 05/18/25 History isosorbide mononitrate 60 mg 60 mg PO QDAY 05/01/25 05/19/25 05/20/25 History tablet,extended release 24 hr meloxicam 15 mg tablet 15 mg PO QDAY 05/01/25 05/19/25 05/18/25 History umeclidinium 62.5 mcg-vilanterol 1 inh inhalation QDAY 05/01/25 05/19/25 05/19/25 History 25 mcg/actuation powdr for inhalation (Anoro Ellipta) Allergies Allergy/AdvReac Type Severity Reaction Status Date / Time No Known Allergies Allergy Verified 05/01/25 09:44 Current Medications Generic Name Dose Route Start Last Admin Trade Name Freq PRN Reason Stop Dose Admin Sodium Chloride 1,000 mls @ 30 mls/hr 05/20/25 09:45 05/20/25 10:28 Sodium Chloride 0.9% IV 05/21/25 09:44 30 mls/hr .Q24H CARL Administration PFSH Anesthesia Medical History GERD (gastroesophageal reflux disease) Encounter for long-term opiate analgesic use Opioid contract exists Back pain with radiation Facet arthritis of lumbar region Degenerative disc disease, cervical Long-term use of high-risk medication Smoker Surgical History History of colonoscopy with polypectomy 2016 S/P appendectomy S/P cataract extraction RIGHT EYE DR SARMIENTO Status post lens implant LEFT EYE Family History Mother Myocardial infarction Hypertension Sister Myocardial infarction Hypertension Family/Other Stroke Father Hypertension Brother Hypertension Diabetes Other Heart disease Social History Smoking and tobacco/nicotine status: current every day tobacco/nicotine user cigarettes Packs smoked per day: 0.5 Years cigarettes smoked: 40 [ Other cigarette details: slowed down] Alcohol intake: former Former alcohol use details: Quit 10 years ago Substance/Drug Use: never Adopted: No Caregiver/support person: No Lives independently: Yes service: No Current occupational status: disabled Sexually active: Yes Do you think of yourself as: Straight/Heterosexual Current gender identity: Male Data Anesthesia Cardiac Studies: Sestamibi Stress Test (Cardiology) 10/24/22
--- NOTE | 2025-05-20 11:32 | W.PM.OPSUD ---
Surgery/Procedure H&P Update DATE OF PROCEDURE: May 20, 2025 DATE H&P PERFORMED: 04/28/25 H&P UPDATE INFORMATION: I have reviewed H&P completed within last 30 days, I have examined patient prior to procedure and No changes to prior documentation PREOP DIAGNOSIS: Lumbar stenosis with neurogenic claudication PLANNED PROCEDURE: Operation Date: 05/20/25 11:00 Proposed Procedures p Spinal Fusion PSF(Not Applicable) - Mati Leal DO s Lumbopelvic Fixation(Not Applicable) - Mati Leal DO s Sacroiliac Joint Fusion SI Joint Fusion(Not Applicable) - DO marcellus Miller Lumbar Spine Decompression Lumbar Decompression(Not Applicable) - Mati Leal DO
[2025-05-20] MEDS: fentaNYL 50 mcg/mL INJ 2mL IVP ×3 (11:48→15:30)
[2025-05-20] MEDS: ceFAZolin 2,000 mg SDV 2000 MG IVP ×2 (11:55→18:14)
[2025-05-20] MEDS: tobramycin 40 mg/mL SDV 2mL 120 MG XX (12:51)
[2025-05-20] MEDS: lidocaine-epi 1% 20 mL INJ INJECTION (13:01)
[2025-05-20] MEDS: heparin, porcine 1,000 unit/mL INJ 10 mL 10000 UNIT IRRIGATION (13:09)
--- NOTE | 2025-05-20 14:54 | PM.OP ---
Operative Report Date of procedure: May 20, 2025 Pre-op diagnosis: Lumbar stenosis with neurogenic claudication Post-op diagnosis: same Surgeon: Mati Leal, Procedure: 1. L5/S1 Interbody fusion with posterolateral fusion 2. Interbody cage placed at L5-S1 3. L3 to pelvis fusion 4. L3-S1 posterior spine instrumentation 5. Lumbopelvic instrumentation 6. Open SI joint fusion on the right 7. Open SI joint fusion on the left 8. Use of computer navigation stereotactic for spine 9. Bone marrow aspirate from right iliac crest 10. L3/4 laminectomy and partial facetectomies 11. L4/5 laminectomy with partial facetectomy 12. L5/S1 laminectomy with partial facetectomies 13. Use of allograft Patient brought to the operative suite after undergoing anesthesia was placed in the prone position. All areas impingement well-padded. Patient is prepped and draped in normal sterile fashion. Skin incisions made using the previous skin incision extending slightly above and below. The thoracolumbar fascia was split and subperiosteal dissection was made out to the transverse process of L3 to L5 bilaterally as well as the sacral ala bilaterally. Sacrum and SI joints were dissected out as well. Next attension was was brought to the bone marrow aspirate. This was done by using the [employer] cell bone marrow aspiration kit. The iliac crest was identified and through a separate incision through the fascia and the bone marrow aspiration kit was inserted into the right iliac crest. Bone marrow aspirate was taken 20 cc. This was mixed with the allograft. Next attention was brought to placing the fiducial for the C-arm. This is going to be used for the computer navigation. 2 pins were placed into the right iliac crest which were later moved to the end of the case. The fiducial was attached. C-arm was brought in and then spun around the patient. The information from C arm was then later used after is loaded the computer for the placement of pedicle screws. Next attention was brought to placing the pedicle screws. This was done L3 bilaterally L4 bilaterally, L5 bilaterally and S1 bilaterally. The computer navigated awl was inserted into the pedicle. Followed by the pedicle feeler. Followed by placement of the screws using the computer navigation. At all these levels. Next attention was placing the iliac screws. This was done using the computer navigated awl. This is placed through the ala across the SI joint into the iliac crest. Then followed by the pedicle feeler. Followed by computer navigated tap. 90 mm 9.5 millimeter pedicle screws were then placed into the iliac crest. This was done bilaterally. Next attention was brought to the open SI joint fusions. This was done by using the computer navigated awl crossing the SI joint. Through direct visualization as well. The pedicle feeler was used to make sure was crossed no breaches. The canal was then filled with bone graft. And then a computer navigated SI joint fusion screws placed across the SI joint. This process was done on both the right and the left side. Once all the screws were placed attention was then brought to doing the laminectomy at L3-4. Patient had previous laminectomies performed on the right side. At this point the spinous process was taken down at L3-4. High-speed bur was used to take down the laminectomy. The facet joints were also taken down using the high-speed bur burring completely out so that the L3 nerves were identified. The facet was taken down and the medial aspect of the facet up to the pedicle was taken down bilaterally of the L4 pedicle. Using Kerrison rongeur. Ligamentum flavum was taken down as far as the kidney there was scarring. However the dura was completely opened and felt to be adequately decompressed. The L3 nerves were traced around the L3 pedicle out where the foramen was in the L4 nerves were traced around the L4 pedicles. Next attention was brought to the L4-5 level. The lamina was identified in the scar tissue. Facet joint was taken down high-speed bur was was the lamina. The L for nerve was traced at the 045 foramen and the L5 nerve was traced around the L5 pedicle. Laminectomy was then performed L5-S1. Again the high-speed bur was used to take down the lamina of L5 the facet joints were taken down with a high-speed bur curved curette and Kerrisons were used to take the remaining bone down the ligament flavum was taken down from L5-S1. S1 nerve was traced around the S1 pedicle as the L5 nerve roots were traced out the L5-S1 foramen. The S1 nerve root was then reflected medially on the left side. Discectomy was performed using a knife followed by pedro luis. Pedro Luis were used starting at size [address] up to size 7. A size 7 trial was used felt to be good size cage and then a size 7 Bhargav cage was inserted into the L5-S1 disc space. This was then tamped into good position on the vertebral body which is confirmed under C-arm guidance. Wounds were then irrigated. The elisa was then attached from L3, L4, L5, S1 and into the iliac screw completing the lumbopelvic fixation. This was done bilaterally. The screw caps were then torqued into position. This was done bilaterally. Next attention was brought to decorticating the transverse processes of L3 bilaterally L4 bilaterally L5 bilaterally and sacral ala bilaterally as well as the SI joints. Osteoamp bone graft was then packed into the gutters. And across the SI joint. Vancomycin powder and tobramycin was mixed with calcium sulfate beads packed into the wound was placed deep drain was placed and wound was closed in layered fashion with Vicryl and Monocryl. Sterile dressings were applied patient was transferred to the PACU in stable condition.
[2025-05-20] MEDS: HYDROcodone-acetaminophen 5-325 mg Tablet PO ×2 (16:00→21:10)
--- NOTE | 2025-05-20 17:00 | ANE.PACU2 ---
Inpatient post-anesthesia follow up: Airway intact: Yes Vital signs: Temperature 97.8 F Pulse Rate 64 Respiratory Rate 16 Blood Pressure 138/75 Pulse Oximetry 96 Oxygen Delivery Me thod Room Air Oxygen Flow Rate 0 Fraction of Inspir ed Oxygen Hydration adequate: Yes Nausea and vomiting: No Pain level: 1 Mental status: Baseline
[2025-05-20] MEDS: ATORVASTATIN 10 MG TABLET PO (18:22)
[2025-05-20] MEDS: morphine 4 mg/mL SDV 1 mL 2 MG IVP (18:23)
[2025-05-21] VITALS (10 sets, daily range): BP systolic 101–138; BP diastolic 60–75; PULSE 63–76; RESP 16–17; TEMP 36.4–36.6; O2SAT 95–98
--- OUTSIDE RECORDS SUMMARY | 2025-05-21 04:04 | XMS_ITS | Encounter Summary ---
Author Organization [facility] Address [address] [place] [address] Care Team Providers Care Top Tile Decorator Name Role Phone Unavailable Primary Care Provider Unavailabl e Reason for Referral * CT Scan (Routine) - Closed Specialty Diagnoses / Procedures Referred By Contac t Referred To Contact Radiology Diagnoses Personal history of tobacco use, presenting hazards to health Procedures CT LUNG SCREENING Preeti Hubbard MD [address] [place] [address] Phone: tel: fax: [facility] [address] [place] [address] Phone: tel: fax: Referral ID Status Reason Start Date Expiration Date V isits Requested Visits Authorized [id number] Closed [facility] TO SCHEDULE ([facility]) 01/17/2019 02/17/2020 1 1 Encounter Details Date Type Department Care Team (Late st Contact Info) Description 01/17/2019 Ancillary Orders [facility] Pre-Registration [place] CALL TO MAKE APPOINTMENT ONLY [address] [place] [address] Preeti Hubbard MD [address] [place] [address] Personal history of tobacco use, presenting hazards to health Social History Tobacco Use Types Packs/Day Years Used Date Smoking Tobacco: Never Assessed Sex and Gender Information Value Date Recorded Sex Assigned at Not on file 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 Exam: CT LUNG SCREENING Date/Time of Exam: 01/31/2019 4:46 PM Reason For Exam: See Diagnosis. Diagnosis: Personal history of tobacco use, presenting hazards to health. Technique: Low-dose CT of the chest was performed without the use of contrast. Comparison: None. Findings: The thoracic inlet is within normal limits. There is no axillary or intrathoracic lymphadenopathy. Calcified lymph nodes are present compatible with previous granulomatous disease. The heart is normal in size. There are coronary artery calcifications. There is no pericardial effusion. The thoracic aorta shows atherosclerotic changes without aneurysm. The pulmonary arteries are within normal limits. The tracheobronchial tree is clear. No pulmonary consolidation, pleural effusion or pneumothorax is identified. There is a noncalcified nodule within the right lower lobe having an average diameter of 0.4 cm as seen on image 121 of series 4. There is a noncalcified subpleural nodule within the right lower lobe having an average diameter of 0.4 cm as seen on image 171 of series 4. There is a noncalcified subpleural nodule within the left lower lobe having an average diameter of 0.4 cm as seen on image 171 of series 4. There is a noncalcified nodule within the left upper lobe having an average diameter of 0.2 cm as seen on image 35 of series 4. There is a noncalcified nodule within the left upper lobe having an average diameter of 0.4 cm as seen on image 130 of series 4. No significant upper abdominal or subcutaneous soft tissue pathology is identified. Mild vertebral body compression deformities are present likely chronic in nature. Osteopenia and degenerative changes are present. IMPRESSION: Lung-RADS 2: BENIGN APPEARANCE OR BEHAVIOR. Nodules with a very low likelihood of becoming a clinically active cancer due to size or lack of growth. Continue annual screening with LDCT in 12 months. [id number] Narrative Procedure Note Richard Mcdonald, DO - 02/01/2019 IMPRESSION: Please see below. Exam: CT LUNG SCREENING Date/Time of Exam: 01/31/2019 4:46 PM Reason For Exam: See Diagnosis. Diagnosis: Personal history of tobacco use, presenting hazards to health. Technique: Low-dose CT of the chest was performed without the use of contrast. Comparison: None. Findings: The thoracic inlet is within normal limits. There is no axillary or intrathoracic lymphadenopathy. Calcified lymph nodes are present compatible with previous granulomatous disease. The heart is normal in size. There are coronary artery calcifications. There is no pericardial effusion. The thoracic aorta shows atherosclerotic changes without aneurysm. The pulmonary arteries are within normal limits. The tracheobronchial tree is clear. No pulmonary consolidation, pleural effusion or pneumothorax is identified. There is a noncalcified nodule within the right lower lobe having an average diameter of 0.4 cm as seen on image 121 of series 4. There is a noncalcified subpleural nodule within the right lower lobe having an average diameter of 0.4 cm as seen on image 171 of series 4. There is a noncalcified subpleural nodule within the left lower lobe having an average diameter of 0.4 cm as seen on image 171 of series 4. There is a noncalcified nodule within the left upper lobe having an average diameter of 0.2 cm as seen on image 35 of series 4. There is a noncalcified nodule within the left upper lobe having an average diameter of 0.4 cm as seen on image 130 of series 4. No significant upper abdominal or subcutaneous soft tissue pathology is identified. Mild vertebral body compression deformities are present likely chronic in nature. Osteopenia and degenerative changes are present. IMPRESSION: Lung-RADS 2: BENIGN APPEARANCE OR BEHAVIOR. Nodules with a very low likelihood of becoming a clinically active cancer due to size or lack of growth. Continue annual screening with LDCT in 12 months. [id number] ORDERABLES Final R esult documented in this encounter Visit Diagnoses Diagnosis Personal history of tobacco use, presenting hazards to health Personal history of tobacco use, presenting hazards to health documented in this encounter
--- OUTSIDE RECORDS SUMMARY | 2025-05-21 04:04 | XMS_ITS | Clinical Summary ---
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
--- OUTSIDE RECORDS SUMMARY | 2025-05-21 04:04 | XMS_ITS | Encounter Summary ---
Author Organization [facility] Address [address] [place] [address] Care Team Providers Care Commissary Officer Name Role Phone Unavailable Primary Care Provider Unavailabl e Encounter Details Date Type Department Care Team (Late st Contact Info) Description 10/23/1997 Outpatient Historical [facility] Occupational Medicine-[facility] [place] [address] [place] [id number] [phone] Social History Tobacco Use Types Packs/Day Years Used Date Smoking Tobacco: Never Assessed Sex and Gender Information Value Date Recorded Sex Assigned at Not on file 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
--- OUTSIDE RECORDS SUMMARY | 2025-05-21 04:04 | XMS_ITS | Clinical Summary ---
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
[2025-05-21] MEDS: ceFAZolin 2,000 mg SDV 2000 MG IVP ×2 (05:33→12:37)
--- NOTE | 2025-05-21 07:40 | XR_ITS ---
WS: [id number] Lumbar spine, C-arm fluoroscopy views, 05/20/2025 Clinical Data: or pic, spinal fusion Comparison: Lumbar spine, 04/09/2025 Findings: Dr. Leal performed a posterior lumbar fusion XR/XR lumbar spine 2-3V* [id number] Impression: Posterior lumbar fusion.
--- NOTE | 2025-05-21 08:14 | PM.PN ---
Subjective Subjective: Patient is doing well pain is controlled. He has not been out of bed yet Vitals/I&O/Wt Last Vital Signs Temp 97.8 F 05/21/25 07:53 Pulse 64 05/21/25 07:53 Resp 16 05/21/25 07:53 BP 138/75 05/21/25 07:53 Pulse Ox 96 05/21/25 07:53 O2 Del Method Room Air 05/21/25 07:53 O2 Flow Rate 0 05/20/25 15:05 05/20/25 05/21/25 05/21/25 22:59 06:59 14:59 Intake Total 779 / 779 1000 / 1779 Output Total 1620 / 1620 600 / 2220 Balance -841 / -841 400 / -441 Weight last 48 hrs Weight 174 lb Weight 175 lb Weight 175 lb Physical Exam Narrative: Pain controlled sitting in bed comfortably eating breakfast. Urinary Catheter Management: Hussein: Cath Placed During This Visit: yes Reason for Continuing Indwelling Catheter: Perioperative Use in Selected Surgeries Urinary Catheter Date of Insertion: 05/20/25 Urinary Catheter Time of Insertion: 12:10 A&P Assessment and plan 1. Status post lumbar spinal fusion: Postop day #1 lumbar fusion. Possible discharge today depending on how he does with physical therapy. PDMP PDMP Reviewed: Not Reviewed Attestations Medical Necessity Statement*: Pain control Coding Level of Care Code Acute Code for Chg Fwd Diagnoses Status post lumbar spinal fusion Z98.1
[2025-05-21] MEDS: HYDROcodone-acetaminophen 5-325 mg Tablet PO ×2 (08:25→12:36)
--- NOTE | 2025-05-21 16:34 | P.DS_ITS ---
Discharge Providers Date of Admission: 05/20/25 16:28 Date of Discharge: May 21, 2025 Attending Provider at Admission: Mati Leal DO Attending Provider at Discharge: Mati Leal DO Primary Care Provider: Mo Alvarado MD Diagnoses at Discharge Discharge Diagnosis 1. Status post lumbar spinal fusion: Reason for Visit Reason for Visit: M48.062 Physical Exam Narrative: Patient was up ambulating well with physical therapy. Urinary Catheter Management: Hussein: Cath Placed During This Visit: yes Reason for Continuing Indwelling Catheter: Perioperative Use in Selected Surgeries Urinary Catheter Date of Insertion: 05/20/25 Urinary Catheter Time of Insertion: 12:10 Discharge Data Studies Completed and Pending Completed Studies During Hospitalization Category Date Time Status XR lumbar spine 2-3V* [id number] Routine Exams 05/21/25 07:40 Completed Radiology Impressions Lumbar Spine X-Ray 05/21/25 07:40 Impression: Posterior lumbar fusion. Laboratory Results Blood Type A Positive 05/20/25 10:18 Rho(D) Type Rh positive 05/20/25 10:18 Antibody Screen Negative 05/20/25 10:18 Vitals Last Vital Signs Temp 97.5 F L 05/21/25 15:15 Pulse 66 05/21/25 15:27 Resp 16 05/21/25 15:25 BP 101/62 05/21/25 15:15 Pulse Ox 95 05/21/25 15:25 O2 Del Method Room Air 05/21/25 15:25 O2 Flow Rate 0 05/20/25 15:05 Discharge Plan Discharge Patient Disposition: Home Condition: Stable Prescriptions: New hydrocodone-acetaminophen 5-325 mg tablet 1 - 2 tab PO .Q4-6H PRN (Reason: pain) 7 Days Qty: 40 0RF Continued pravastatin 40 mg tablet 20 mg PO DAILY@1830 gabapentin 600 mg tablet 600 mg PO .qhs isosorbide mononitrate 60 mg tablet extended release 24 hr 60 mg PO QDAY benazepril 40 mg tablet 40 mg PO QDAY umeclidinium-vilanterol [Anoro Ellipta] 62.5-25 mcg/actuation blister with device 1 inh inhalation QDAY amlodipine 10 mg tablet 10 mg PO DAILY nitroglycerin 0.3 mg tablet, sublingual 0.3 mg sublingual Q5M PRN (Reason: as needed for chest pain) Qty: 30 3RF Rx Instructions: do not exceed 3 doses per episode. pantoprazole 40 mg tablet,delayed release (DR/EC) 40 mg PO BID Qty: 60 0RF carvedilol 12.5 mg tablet 12.5 mg PO QPM Held meloxicam 15 mg tablet 15 mg PO QDAY Hold Instructions: Resume on 05/23/25. aspirin 81 mg tablet,delayed release (DR/EC) 81 mg PO DAILY 90 Days Qty: 90 0RF Hold Instructions: Resume on 05/22/25. Discharge Order = DC NOW: Discharge Order (Routine); Ordered 05/21/25 Ordered By: Mati Leal Other Ambulatory Orders: DME: Walker (Order) Location: None Selected Ordered By: Mati Leal DME: [facility] (Order) Location: None Selected Ordered By: Mati Leal Referrals: Mati Leal, [Physician, Orthopedics] - 06/02/25 2:00 pm Discharge Diet: Advance as tolerated Discharge Activity: Limit activity as instructed Patient Instructions: Acute Wound Care (DC), Post Anesthesia Care Activity Restrictions/Additional Instructions: Thank you for choosing [facility] for your care! The following is a list of instructions, from your provider, to follow upon your discharge to ensure you have the optimal recovery from your recent injury or surgery. Follow-up care is a marshall part of your treatment and safety. Be sure to make and go to all appointments, and call your doctor if you are having problems. If you do not already have a follow-up appointment made, call Dr. Leal's office in the next 1-3 days to make follow up appointment for 1 weeks at [phone]. It is also a good idea to know your test results and keep a list of the medicines you take. Medications will be prescribed for you at your provider?s discretion. These medications are to be used as instructed;if they are taken more often that prescribed they will not be refilled early and in most cases will not be refilled at all. > When a refill is needed,you should contact our office 2-3 business days beforeyour prescription runs out. Medications will NOTbe refilled by environmental sampling technician providers after hours! > Many pain medications contain Tylenol (Acetaminophen). Do not consume more than 4,000 mg of Tylenol per day in total with any combination of medications. > Pain medications can cause constipation. Please use an over the counter stool softener as directed, while taking pain medications. Consult your local pharmacist with questions or recommendations on stool softeners. If constipation persists, contact our office or your primary care provider. > While under our care,you are not to receive pain medications or other controlled substances from any other provider unless our office is notified and approves. Any attempts to do so will result in refusal to prescribe any further pain medications and possible dismissal from our practice. ? Your wound and/or dressing should remain clean and dry for 2 days after surgery. On postoperative day 2 (48 hours after your surgery) the dressing (if present) should be removed and it is okay to shower and get the incision wet. Pat dry afterwards. No further dressing should be required from that point on. Do not put any creams or ointments on the incision > It is normal for there to be a small amount of discharge (bloody or blood tinged) present from a surgical wound for the first 1-3days. > The wound should be examined twice a day for signs of infection. Mild redness or bruising is to be expected but indications that an infection maybe starting would include;An increase in redness, swelling, or discharge, a foul odor present around the incision, and/or a fever greater than 101 ?F ? Showering is permitted, however we ask that you do not take a bath, sit in a whirlpool / Jacuzzi, or go swimming for 1 month. For only the first 2 days after surgery, lt wilt be necessary for you to cover your wound/dressing with plastic and tape to keep it dry. ? Walking is essential for the healing process after surgery. We would like you to slowly advance your walking. This should be done on relatively flat clear ground (inside or out) or can be done on a treadmill. Remember this goal does not have to happen all at once, slowly increase your distance and duration. This can be broken into more more than one walk per day as tolerated. Patients who walk as directed after surgery rarely require Physical Therapy. In the unlikely event this issue arises your provider will direct hospital staff to make the appropriate arrangements. ? No lifting over 5 pounds {a gallon of milk) or bending/twisting until further notice. Each of these activities places an unnecessary amount of stress onto the body and can impede the delicate healing process. > Instead of bending at the waist, keep your back straight and bend at the knees. > Instead of twisting your torso, keep your back straight and turn your entire body with your feet. ? You may sleep in any position which makes you comfortable.Many patients find comfort sleeping in a reclining chair. It is not abnormal to have difficulty sleeping for the first several weeks following your surgery. We recommend trying Benadryl or Tylenol PM as directed to help with your sleeping difficulties. Both medications are over the counter and available without prescription. ? NO SMOKING!!!Smoking dramatically increases the probability of developing postoperative wound infections. ? Common complaints after lumbar and/or thoracic spine surgery include, but are not limited to: numbness and/or tingling in the legs, pain around the incision and surrounding tissues, muscle spasms, or stiffness of the middle to low back. Contact our office if these symptoms persist or if an acute change occurs. ? No driving for the first 3-5 days, and not while taking narcotics until seen at your follow-up appointment and cleared.There are no restrictions for riding on short trips, however if you take a longer trip, arrangements should be made to make regular stops to get out of the vehicle and stretch . ? Swelling is an unfortunate event that will take place with any surgery and is the primary source of your postoperative discomfort. While walking and regular approved activities helps control inflammation, there are additional steps you can take to minimize swelling. > Place ice over the surgical site and surrounding tissue for twenty minutes, followed by applying a low/medium heat (heating pad) for an additional twenty minutes every 1-2 hours as needed for pain relief. > You may use of over the counter anti-inflammatory medications (Ibuprofen, Motrin, Aleve, Advil, etc) as directed on the package label. These types of medicines will significantly reduce the amount of discomfort you experience after surgery from swelling. It should be noted that if you have an allergy to any of these medications, or a history of ulcers or kidney disease you should consult your primary care provider prior to starting these medications. Discharge Attestations Time Spent in Discharge Care*: less than 30 min Quality Metrics Clinical Quality Measures [ No reported AMI, CVA or VTE this stay] Coding Level of Care Code Acute Code for Chg Fwd Diagnoses Status post lumbar spinal fusion Z98.1
== END 2025-05-21 16:55 | disposition home or self-care (01) | DRG 428 ==
LOC: MEDSURG 23:20
PROVIDERS: Admitting Provider Orthopaedic Surgery; PCP Family Medicine; Visit Provider Orthopaedic Surgery
PROC: 0SG30AJ Fusion of Lumbosacral Joint with Interbody Fusion Device, Posterior Approach, Anterior Column, Open Approach (ICD-10-PCS; principal; 2025-05-20 11:00)
PROC: 0SG30AJ Fusion of Lumbosacral Joint with Interbody Fusion Device, Posterior Approach, Anterior Column, Open Approach (ICD-10-PCS; 2025-05-20 11:00)
PROC: 0SG30AJ Fusion of Lumbosacral Joint with Interbody Fusion Device, Posterior Approach, Anterior Column, Open Approach (ICD-10-PCS; CPT 27280; 2025-05-20 11:00)
PROC: 0SG30AJ Fusion of Lumbosacral Joint with Interbody Fusion Device, Posterior Approach, Anterior Column, Open Approach (ICD-10-PCS; CPT 63005; 2025-05-20 11:00)
DX: M48.062 Spinal stenosis, lumbar region with neurogenic claudication (principal); K21.9 Gastro-esophageal reflux disease without esophagitis; I10 Essential (primary) hypertension; F17.210 Nicotine dependence, cigarettes, uncomplicated; Z79.899 Other long term (current) drug therapy; Z79.82 Long term (current) use of aspirin; Z86.018 Personal history of other benign neoplasm
CPT/HCPCS: 51702; 72100; 76000; 86850; 86900; 94640; 97116; 97161; 97530; C1713; C1734; C1776; J0131; J0330; J0690; J1100; J1171; J1644; J1885; J2270; J2405; J2704; J3010; J3260; J3373; J3490; J7030; J7120; J7626; J7644; J9999

== ENCOUNTER → 2025-06-02 09:33 | Outpatient (BNVA) | payer OTHER, MEDICAID, SELFPAY | PROVIDERS: PCP Family Medicine; Visit Provider Orthopaedic Surgery | DX: Z98.890 Other specified postprocedural states (principal); Z98.1 Arthrodesis status | CPT/HCPCS: 99024 ==

== ENCOUNTER → 2025-06-11 10:32 | Outpatient (BNVA) | payer OTHER, MEDICAID, SELFPAY | PROVIDERS: PCP Family Medicine; Visit Provider Orthopaedic Surgery | DX: Z98.890 Other specified postprocedural states (principal); Z98.1 Arthrodesis status | CPT/HCPCS: 99024 ==

== ENCOUNTER → 2025-07-07 08:28 | Outpatient (BNVA) | payer OTHER, MEDICAID, SELFPAY | PROVIDERS: PCP Family Medicine; Visit Provider Orthopaedic Surgery | DX: Z98.890 Other specified postprocedural states (principal); Z98.1 Arthrodesis status | CPT/HCPCS: 72100; 99024 ==

== ENCOUNTER → 2025-08-18 08:23 | Outpatient (BNVA) | payer OTHER, MEDICAID, SELFPAY | PROVIDERS: PCP Family Medicine; Visit Provider Orthopaedic Surgery | DX: Z98.890 Other specified postprocedural states (principal); Z98.1 Arthrodesis status | CPT/HCPCS: 72100; 99024 ==

== ENCOUNTER → 2025-08-28 09:43 | Outpatient (BNVA) | payer OTHER, MEDICAID, SELFPAY | PROVIDERS: PCP Family Medicine; Visit Provider Internal Medicine Cardiovascular Disease | DX: I10 Essential (primary) hypertension (principal); R07.89 Other chest pain; Z72.0 Tobacco use | CPT/HCPCS: 99214 ==